=== PATIENT | male | born 1960 | race Caucasian/White ===

== ENCOUNTER 2024-04-27 22:59 | Inpatient (IN) | payer BC, SELFPAY ==
[2024-04-27 23:00] VITALS: BMI 29.0
--- NOTE | 2024-04-27 23:16 | EKG_ITS ---
[facility] Test Date: 2024-04-27 Pat Name: LANEY LEON Department: Room: - Gender: Male Clinical Data Management Director: : 1960 Requested By: Gavin Bangura Order Number: [id number] Reading MD: Gavin Bangura Measurements Intervals [place] Rate: 113 P: 45 RI: 149 QRS: 60 QRSD: 97 T: 32 QT: 326 QTc: 448 Interpretive Statements SINUS TACHYCARDIA ABNORMAL RHYTHM ECG Compared to ECG 08/29/2023 09:48:54 Sinus bradycardia no longer present /store/S0/[id number].pdf
--- NOTE | 2024-04-27 23:16 | XR_ITS ---
Examination: PA lateral chest 2 views Technique: Upright PA lateral chest 2 views Exam date and time: April 27, 2024 1135 hrs. Indications: Right chest pain beginning 2 days ago Findings: Atelectasis versus mild pneumonia right base medially Normal heart size No pulmonary edema The osseous structures are intact Impression: Atelectasis versus early pneumonia right base, clinical correlation advised
--- NOTE | 2024-04-27 23:16 | PD.EDRME ---
Rapid Medical Screening Exam RME Arrival date/time: 04/27/24 22:59 63 year old male present to Ed for n/v, rib/chest pain I have greeted and performed a focused initial assessment of this patient. A comprehensive ED assessment and evaluation of the patient, analysis of all test results, and completion of the medical decision making process will be conducted by additional ED providers. Chief Complaint: General Adult/Misc Complain Time Seen by Provider: 04/27/24 23:02
[2024-04-27 23:20] VITALS: BP 151/94; PULSE 117; RESP 18; TEMP 37; O2SAT 95
[2024-04-27 23:35] LABS: Basophils % (Auto) 0 % (0-2.5); Eosinophils % (Auto) 0 % (0-10); Hematocrit 50.7 % (41.0-53.0); Hemoglobin 16.8 g/dL (13.5-16.0); Immature Granulocytes % (Auto) 1 % (0-0); Immature Granulocytes Auto 0.11 Thou/mm3 (0.00-0.00); Lymphocytes # (Auto) 1.5 Thou/mm3 (1.0-4.8); Lymphocytes % (Auto) 8 % (10-50); Mean Corpuscular HGB Conc 33.1 g/dl (31.0-37.0); Mean Corpuscular Hemoglobin 28.1 pg (25.0-35.0); Mean Corpuscular Volume 85 fL (80-100); Monocytes % (Auto) 10 % (0-12); Neutrophils # (Auto) 16.4 Thou/mm3 (1.8-7.7); Neutrophils % (Auto) 82 % (37-80); Nucleated Red Blood Cell % 0 /100 WBC (0); Platelet Count 224 Thou/mm3 (140-440); RDW Standard Deviation 43.7 fL (35.1-43.9); Red Blood Count 5.98 Miln/mm3 (4.50-5.90)
[2024-04-27 23:59] LABS: Alanine Aminotransferase 31 U/L (10-49); Albumin, Serum 5.1 gm/dL (3.4-4.8); Albumin/Globulin Ratio 1.8 (1.2-2.2); Alkaline Phosphatase 88 U/L (46-116); Anion Gap 12 (7-16); Aspartate Amino Transferase 13 U/L (0-34); BUN/Creatinine Ratio 10 Ratio (12-20); Bilirubin,Total 1.1 mg/dL (0.3-1.2); Blood Urea Nitrogen 12 mg/dL (9-23); Calcium 10.5 mg/dL (8.3-10.6); Calcium (Corrected) 10.5 mg/dL (8.5-10.1); Carbon Dioxide 24.1 mMol/L (20.0-31.0); Chloride 100 mMol/L (98-107); Creatinine (Component) 1.2 mg/dL (0.6-1.3); Estimated Creatinine Clearance 77.3 mL/min (>60); Globulin 2.9 gm/dL (2.3-3.5); Glucose 173 mg/dL (74-106); Lipase 36 U/L (12-53); Osmolality,Calculated 275 (275-295); Sodium 136 mMol/L (136-145); Troponin I < 0.020 ng/mL (0.0-0.045); eGFR > 60 See Note
[2024-04-28] VITALS (16 sets, daily range): BP systolic 127–175; BP diastolic 65–101; PULSE 69–113; RESP 12–20; TEMP 36.4–39.1; O2SAT 94–97; BMI 29.7
--- NOTE | 2024-04-28 00:20 | PC.NURSE ---
RECEIVED PT FROM LEANN GARSIA , PT C/O THAT AFTER VOMITING YESTERDAY HE STARTED HAVING PAIN TO RIGHT RIB AREA .
--- NOTE | 2024-04-28 00:40 | PD.EDADULT ---
ED General RME/HPI General Chief complaint: General Adult/Misc Complain Stated complaint: RT RIB PAIN AFTER VOMITING Time Seen by Provider: 04/27/24 23:02 Arrival date/time: 04/27/24 22:59 RME / HPI RME / HPI narrative: 04/27/24 22:59 63 year old male present to Ed for n/v, rib/chest pain I have greeted and performed a focused initial assessment of this patient. A comprehensive ED assessment and evaluation of the patient, analysis of all test results, and completion of the medical decision making process will be conducted by additional ED providers. ------ Dr. Becerril?s Main ED Evaluation: 63yo male presents to the ED for multiple complaints. Patient states he started having nausea and vomiting yesterday morning. He states he was vomiting so much, he started having right rib and RUQ pain, reporting it now radiates to his back and right shoulder. He has had an intermittent fever and chills. He denies any diarrhea, UTI symptoms or any other associated symptoms. No known allergies. Related Data Home Medications ?Medication ?Instructions ?Recorded ?Confirmed tadalafil 10 mg tablet (Cialis) 10 mg PO QDAY PRN Sexual Activity 11/13/22 04/28/24 ezetimibe 10 mg tablet 10 mg PO HS 04/28/24 04/28/24 Allergies Allergy/AdvReac Type Severity Reaction Status Date / Time No Known Allergies Allergy Verified 01/22/24 11:02 Review of Systems Review of Systems Systems Reviewed: All systems reviewed, normal except as documented Past Medical History Past Medical History NEUROLOGIC: Negative Neurological Disorders or Seizures CARDIAC: Positive Cardiac Disorders and Hypercholesterolemia (no meds); Negative Congestive Heart Failure or Hypertension RESPIRATORY: Negative Chronic Obstructive Pulmonary Disease (COPD), Asthma or Sleep Apnea GASTROINTESTINAL: Positive Gastrointestinal Disorders (H. PYLORI) and Ulcer GENITOURINARY: Negative Genitourinary Disorders or Renal Disease MUSCULOSKELETAL: Negative Musculoskeletal Disorders ENDOCRINE: Negative Endocrine Disorders, Diabetes Mellitus Type 1 or Diabetes Mellitus Type 2 HEMATOLOGIC: Negative Blood Disorders OTHER HISTORY: Negative Blood Transfusions, Anesthesia Reactions or Cancer Family History FAMILY HISTORY: Negative Family Anesthesia Reaction Surgical History SURGICAL: Positive Vasectomy Social History SMOKING STATUS: Never smoker ED Exam Narrative Physical exam: GENERAL APPEARANCE: alert and oriented x 4, well-developed, well-nourished, no acute distress VITALS: All vitals were reviewed and the pulse ox is 96% on room air, which is normal according to my interpretation. HEENT: Normocephalic, atraumatic; pupils equal, round, reactive to light; EOMI; mucous membranes pink, moist; oropharynx clear NECK: Supple LUNGS: CTABL; no wheezes, no rales, no rhonchi HEART: Regular rate, regular rhythm; normal S1, S2; no murmurs ABDOMEN: non distended; normal BS; soft, severe tenderness in all quadrants with guarding, rebound, and rigidity; no masses, no organomegaly, no hernia BACK: no CVA tenderness EXTREMITIES: atraumatic; no edema NEUROLOGIC: awake; alert and oriented x4; cranial nerves II-XII grossly intact; no focal sensory or motor deficits PSYCHIATRIC: appropriate mood and affect SKIN: warm, dry, normal color; no rashes Course Course Course Narrative: CXR is ordered for determining the etiology of fever. 0056: Sepsis alert initiated. Orders made at this time are congruent with ED Adult Sepsis Order List. Re-evaluation is to be completed. 0120: NS IVF started. 0300: Sepsis reassessment performed consisting of lab review, vitals, physical exam including auscultation of heart, lungs, and visual evaluation of capillary refills, mucosal membranes and extremities. 0403: Discussed case with [the resident physician, attending Dr. Rodgers] from Hospitalist service regarding admission. Discussed patients ED course, exam findings, labs, and radiology results. The Hospitalist [agrees] to accept the patient for admission. 0430: The resident hospitalist called back, stating they want Dr. Pastor to admit the patient. 0502: Discussed case with [Dr. Pastor] from [general surgery] regarding [consultation]. Discussed patients ED course, exam findings, labs, and radiology results. States he will admit the patient. Quality Measures Possible source: GI tract/intra-abdominal Blood cultures ordered: yes Antibiotic ordered: Yes Pertinent labs: 04/27/24 04/28/24 23:25 01:08 Lactic Acid 3.9 H mMol/L (0.4-2.0) Procalcitonin 0.17 ng/ml (0.0-0.49) sepsis Orders Category Date Time Status Bedside COVID-19 Antigen Test NOW Care 04/27/24 23:16 Completed Bedside Influenza A&B Antigen Test NOW Care 04/27/24 23:[address] Screening NOW Care 04/28/24 00:55 Completed Property Management Specialist STAT Care 04/28/24 00:54 Active Continuous Pulse Oximetry STAT Care 04/28/24 00:54 Completed EKG (ED ONLY) *Do not use* NOW Care 04/27/24 23:17 Completed Insert IV NOW Care 04/28/24 00:54 Active Miscellaneous Nursing Order NOW Care 04/28/24 02:01 Active NPO STAT Care 04/28/24 00:54 Active Strict Intake and Output Routine Care 04/28/24 00:54 Ordered Consult to General Surgery Stat Cons 04/28/24 03:[address] abd pel w con SEPSIS JUAN C Stat Exams 04/28/24 00:54 Taken EKG (ED Only) Stat Exams 04/27/24 23:16 Draft XR chest 2V Stat Exams 04/27/24 23:16 Completed Arterial Blood Gas Stat Lab 04/28/24 01:12 Completed B-Type Natriuretic Peptide Stat Lab 04/28/24 00:00 Completed Blood Culture (Lab) Stat Lab 04/28/24 01:00 Received CBC Stat Lab 04/27/24 23:25 Completed CMP [Comprehensive Metabolic Panel] Stat Lab 04/27/24 23:25 Completed LDH (Lactate Dehydrogenase) Stat Lab 04/27/24 23:25 Completed Lactate (Lactic Acid) Stat Lab 04/28/24 01:08 Completed Lactic Acid, 3 HR Stat Lab 04/28/24 04:12 Ordered Lipase Stat Lab 04/27/24 23:25 Completed Magnesium Stat Lab 04/27/24 23:25 Completed Partial Thromboplastin Time Stat Lab 04/28/24 00:00 Completed Phosphorous Stat Lab 04/27/24 23:25 Completed Procalcitonin Stat Lab 04/27/24 23:25 Completed Prothrombin Time with INR Stat Lab 04/28/24 00:00 Completed Troponin I Stat Lab 04/27/24 23:25 Completed Urinalysis Stat Lab 04/28/24 03:30 Received Urine Culture Stat Lab 04/28/24 03:30 Received HYDROmorphone INJ [Dilaudid Inj] Med 04/28/24 03:30 Active 1 mg IVP PRN PRN HYDROmorphone INJ [Dilaudid Inj] Med 04/28/24 00:57 Discontinued 1 mg IVP X1 ONE Ondansetron Inj [Zofran Inj] Med 04/28/24 00:57 Discontinued 4 mg IV X1 ONE Piper/Tazo Inj [Zosyn Inj] 4.5 gm Med 04/28/24 00:57 Discontinued Sodium Chloride 0.9% (P) [NS 0.9% mini bag] 100 ml IV NOW Sodium Chloride 0.9% 1000 ml [Ns] 1,000 ml Med 04/28/24 03:30 Discontinued IV 999 mls/hr Sodium Chloride 0.9% 1000 ml [Ns] 2,397 ml Med 04/28/24 00:54 Discontinued IV 2,397 mls/hr Vancomycin Inj 1,000 mg Med 04/28/24 00:57 Discontinued Sodium Chloride 0.9% 250 ml [Ns] 250 ml IV X1 Reevaluation(s) Reevaluation #1: Patient states his pain is improved, but endorses it is starting to return. Pain medication ordered. Time: 03:28 Vital Signs Vital signs: Vital Signs Temperature 98.6 F 04/27/24 23:20 Pulse Rate 117 H 04/27/24 23:20 Respiratory Rate 18 04/27/24 23:20 Blood Pressure 151/94 H 04/27/24 23:20 Pulse Oximetry (%) 95 04/27/24 23:20 Oxygen Delivery Method Room Air 04/27/24 23:20 [facility] Patient data External records reviewed:: [facility] previous records (Per chart review, patient has no relevant previous ED visits or admissions.) Clinical information provided by:: patient Social determinants that could affect healthcare access:: none Patient has the following chronic illnesses:: HLD How is presenting disease/condition affected by chronic disease/condition?: uneffected by Evaluation data The following diagnostics were reviewed and interpreted by me:: lab results and radiology exam(s) Lab and/or radiology exams considered but not ordered:: none Interpretation Summary: WBC count is elevated at 20.0, CMP is normal, Troponin is normal, Lipase is normal, Bedside COVID and Influenza are negative, Lactic Acid is elevated at 3.9, Procalcitonin is normal, according to my interpretation. EKG done at 2330, sinus tachycardia, rate of 113, normal axis, no ectopy, no acute ischemia, according to my interpretation. -------- [facility] Report Signed Patient: LANEY LEON Medxnote. Record#: [id number] Birthdate: 1960 Age/Sex: 63 / M Location: [facility] Attending Dr: Ordering Physician: Gavin Posey PA-C Date of Service: 04/27/24 Procedure(s): XR chest 2V Accession Number(s): [id number] cc: Leanne Samaniego NP; Demetrius Dalton MD; Gavin Posey PA-C~ Examination: PA lateral chest 2 views Technique: Upright PA lateral chest 2 views Exam date and time: April 27, 2024 1135 hrs. Indications: Right chest pain beginning 2 days ago Findings: Atelectasis versus mild pneumonia right base medially Normal heart size No pulmonary edema The osseous structures are intact Impression: Atelectasis versus early pneumonia right base, clinical correlation advised Dictated By: Demetrius Dalton MD Signed By: <Electronically signed by Demetrius Dalton MD in > 04/27/24 2343 --------- [facility] Preliminary Report Draft Patient: LANEY LEON Medxnote. Record#: [id number] Birthdate: 1960 Age/Sex: 63 / M Location: [facility] Attending Dr: Ordering Physician: Date of Service: Procedure(s): Accession Number(s): cc: ~ CT scan of the abdomen and pelvis with intravenous contrast (axial sections with sagittal and coronal reformats) April 28, 2024 0145 hours Clinical History: rigid abdomen No prior study is available for comparison. Findings: There is bibasilar dependent atelectasis. The liver, gallbladder, pancreas, spleen, kidneys and adrenals are unremarkable. No evidence of bowel dilatation. The appendix is thickened, measuring 19 mm in caliber with mural enhancement, moderate periappendiceal fat stranding (axial image 144/332) and adjacent peritoneal thickening. There is an appendicolith, measuring 9 mm. The urinary bladder is unremarkable. There is no free air.Mild ascites is noted. Subcentimeter mesenteric nodes are seen. Mild degenerative changes are identified in the spine. Impression: Acute appendicitis with moderate periappendiceal fat stranding and adjacent peritoneal thickening. No free air or abscess. Mild ascites. Discussion Details: Results Discussed With : Dr. Becerril at 03:10 AM 04/28/2024 Report Electronically Signed By: Bryn Mayen 04/28/2024 3:23:37 AM [EST] Medications Medications considered but not ordered:: none Medication administrations:: Medication Administration History Hydromorphone HCl (Hydromorphone Inj 2 Mg/Ml Vial) 1 mg IVP PRN PRN PRN Reason: PAIN Stop: 04/28/24 15:30 Last Admin: 04/28/24 03:54 Dose: 1 mg Documented By: CVL Discontinued Medications Hydromorphone HCl (Hydromorphone Inj 2 Mg/Ml Vial) 1 mg IVP X1 ONE Stop: 04/28/24 00:58 Last Admin: 04/28/24 01:21 Dose: 1 mg Documented By: CVL Sodium Chloride (Ns) 2,397 mls @ 2,397 mls/hr 30 ml/kg infuse over 60 min (2397 ml) IV .Q1H ONE Stop: 04/28/24 01:53 Last Infusion: 04/28/24 03:38 Dose: Infused Documented By: Admin: 04/28/24 01:20 Dose: 2,397 mls/hr Documented By: CVL Piperacillin Sod/Tazobactam (Sod 4.5 gm/ Sodium Chloride) 100 mls @ 200 mls/hr IV NOW ONE Stop: 04/28/24 01:26 Last Infusion: 04/28/24 01:59 Dose: Infused Documented By: Admin: 04/28/24 01:22 Dose: 200 mls/hr Documented By: CVL Vancomycin HCl 1,000 mg/ (Sodium Chloride) 250 mls @ 150 mls/hr IV X1 ONE Stop: 04/28/24 02:36 Last Infusion: 04/28/24 03:53 Dose: Infused Documented By: Admin: 04/28/24 02:08 Dose: 150 mls/hr Documented By: CVL Sodium Chloride (Ns) 1,000 mls @ 999 mls/hr IV .Q1H1M ONE Stop: 04/28/24 04:30 Last Admin: 04/28/24 03:55 Dose: 999 mls/hr Documented By: CVL Ondansetron HCl (Ondansetron Inj 2 Mg/Ml Inj 2 Ml) 4 mg IV X1 ONE; Protocol Stop: 04/28/24 00:58 Last Admin: 04/28/24 01:19 Dose: 4 mg Documented By: CVL see above Consultations Consultation(s) initiated? (list below): Yes Diagnosis Differential Diagnosis ED Complaint MDM: appendicitis, cholecystitis, SBO, pancreatitis, diverticulitis Most likely diagnosis given after review of the tests above:: see below Admission Indicated Admission indicated?: indicated Explain why admission is indicated or not indicated:: Admission criteria met. Admission Request Was there a request for admission?: Yes Admission Attestation Admission request attestation: Discussed case with [] from Hospitalist service regarding admission. Discussed patients ED course, exam findings, labs, and radiology results. The Hospitalist [agrees,declines] to accept the patient for admission. Disposition Plan Disposition Plan: Admit Medical Decision Making MDM Narrative MDM Narrative: Scribe Attestation: 04/28/24 - Monique Steel am scribing for and in the presence of Dr. Becerril. Differential Diagnosis Differential Diagnosis: appendicitis, cholecystitis, SBO, pancreatitis, diverticulitis Lab Data 04/27/24 23:25 04/27/24 23:25 Labs: Lab Results 04/27/24 04/28/24 04/28/24 Range/Units 23:25 00:00 01:08 WBC 20.0 H (3.8-10.6) Thou/mm3 RBC 5.98 H (4.50-5.90) Miln/mm3 Hgb 16.8 H (13.5-16.0) g/dL Hct 50.7 (41.0-53.0) % MCV 85 (80-100) fL MCH 28.1 (25.0-35.0) pg MCHC 33.1 (31.0-37.0) g/dl RDW Std Deviation 43.7 (35.1-43.9) fL Plt Count 224 (140-440) Thou/mm3 Neut % (Auto) 82 H (37-80) % Lymph % (Auto) 8 L (10-50) % [place] % (Auto) 10 (0-12) % Eos % (Auto) 0 (0-10) % Baso % (Auto) 0 (0-2.5) % Neut # (Auto) 16.4 H (1.8-7.7) Thou/mm3 Lymph # (Auto) 1.5 (1.0-4.8) Thou/mm3 [place] # (Auto) 2.0 H (0.0-0.8) Thou/mm3 Eos # (Auto) 0.0 (0.0-0.5) Thou/mm3 Baso # (Auto) 0.0 (0.0-0.2) Thou/mm3 Immature Gran # (Auto) 0.11 H (0.00-0.00) Thou/mm3 Absolute Nucleated RBC 0.00 (0.00-0.00) Thou/mm3 Immature Gran % 1 H (0-0) % Nucleated RBC % 0 (0) /100 WBC PT 12.5 H (9.0-12.2) Seconds INR 1.2 (0.9-1.3) APTT 27.6 (22.0-36.0) Seconds Puncture Site ABG pH (7.35-7.45) ABG pCO2 (32.0-48.0) mmHg ABG pO2 (83-108) mmHg ABG HCO3 (20-26) mEq/L ABG O2 Saturation (91-98) % ABG Base Excess (-3-3) FiO2 % Sodium 136 (136-145) mMol/L Potassium 4.0 (3.4-5.1) mMol/L Chloride 100 (98-107) mMol/L Carbon Dioxide 24.1 (20.0-31.0) mMol/L Anion Gap 12 (7-16) BUN 12 (9-23) mg/dL Creatinine 1.2 (0.6-1.3) mg/dL Estim Creat Clear Calc 77.3 (>60) mL/min eGFR > 60 (60 - ) See Note BUN/Creatinine Ratio 10 L (12-20) Ratio Glucose 173 H (74-106) mg/dL Calculated Osmolality 275 (275-295) Lactic Acid 3.9 H (0.4-2.0) mMol/L Calcium 10.5 (8.3-10.6) mg/dL Corrected Calcium 10.5 H (8.5-10.1) mg/dL Phosphorus 3.2 (2.4-5.1) mg/dL Magnesium 1.8 (1.6-2.6) mg/dL Total Bilirubin 1.1 (0.3-1.2) mg/dL AST 13 (0-34) U/L ALT 31 (10-49) U/L Alkaline Phosphatase 88 (46-116) U/L Lactate Dehydrogenase 153 (120-246) U/L Troponin I < 0.020 (0.0-0.045) ng/mL B-Natriuretic Peptide < 20 (0-100) pg/mL Total Protein 8.0 (5.7-8.2) gm/dL Albumin 5.1 H (3.4-4.8) gm/dL Globulin 2.9 (2.3-3.5) gm/dL Albumin/Globulin Ratio 1.8 (1.2-2.2) Lipase 36 (12-53) U/L Procalcitonin 0.17 (0.0-0.49) ng/ml 04/28/24 Range/Units 01:12 WBC (3.8-10.6) Thou/mm3 RBC (4.50-5.90) Miln/mm3 Hgb (13.5-16.0) g/dL Hct (41.0-53.0) % MCV (80-100) fL MCH (25.0-35.0) pg MCHC (31.0-37.0) g/dl RDW Std Deviation (35.1-43.9) fL Plt Count (140-440) Thou/mm3 Neut % (Auto) (37-80) % Lymph % (Auto) (10-50) % [place] % (Auto) (0-12) % Eos % (Auto) (0-10) % Baso % (Auto) (0-2.5) % Neut # (Auto) (1.8-7.7) Thou/mm3 Lymph # (Auto) (1.0-4.8) Thou/mm3 [place] # (Auto) (0.0-0.8) Thou/mm3 Eos # (Auto) (0.0-0.5) Thou/mm3 Baso # (Auto) (0.0-0.2) Thou/mm3 Immature Gran # (Auto) (0.00-0.00) Thou/mm3 Absolute Nucleated RBC (0.00-0.00) Thou/mm3 Immature Gran % (0-0) % Nucleated RBC % (0) /100 WBC PT (9.0-12.2) Seconds INR (0.9-1.3) APTT (22.0-36.0) Seconds Puncture Site Right Radial ABG pH 7.46 H (7.35-7.45) ABG pCO2 33 (32.0-48.0) mmHg ABG pO2 70 L (83-108) mmHg ABG HCO3 23 (20-26) mEq/L ABG O2 Saturation 96 (91-98) % ABG Base Excess 0 (-3-3) FiO2 21 % Sodium (136-145) mMol/L Potassium (3.4-5.1) mMol/L Chloride (98-107) mMol/L Carbon Dioxide (20.0-31.0) mMol/L Anion Gap (7-16) BUN (9-23) mg/dL Creatinine (0.6-1.3) mg/dL Estim Creat Clear Calc (>60) mL/min eGFR (60 - ) See Note BUN/Creatinine Ratio (12-20) Ratio Glucose (74-106) mg/dL Calculated Osmolality (275-295) Lactic Acid (0.4-2.0) mMol/L Calcium (8.3-10.6) mg/dL Corrected Calcium (8.5-10.1) mg/dL Phosphorus (2.4-5.1) mg/dL Magnesium (1.6-2.6) mg/dL Total Bilirubin (0.3-1.2) mg/dL AST (0-34) U/L ALT (10-49) U/L Alkaline Phosphatase (46-116) U/L Lactate Dehydrogenase (120-246) U/L Troponin I (0.0-0.045) ng/mL B-Natriuretic Peptide (0-100) pg/mL Total Protein (5.7-8.2) gm/dL Albumin (3.4-4.8) gm/dL Globulin (2.3-3.5) gm/dL Albumin/Globulin Ratio (1.2-2.2) Lipase (12-53) U/L Procalcitonin (0.0-0.49) ng/ml Critical Care Time Critical Care Time Critical Care Time: Yes Total Critical Care Time (min.): 40 Attestation: The high probability of sudden, clinically significant deterioration in the patient?s condition required the highest level of my preparedness to intervene urgently. The services I provided to this patient were to treat and/or prevent clinically significant deterioration. Services included the following: chart data review, reviewing nursing notes and/or old charts, documentation time, sap basis consultant collaboration regarding findings and treatment options, medication orders and management, direct patient care, vital sign assessments and ordering, interpreting and reviewing diagnostic studies and lab tests. Aggregate critical care time includes only time during which I was engaged in work directly related to the patient?s care, as described above, whether at bedside or elsewhere in the Emergency Department. It did not include time spent performing other reported procedures or the services of residents, students, nurses or physician assistants. Discharge Plan Plan Patient Disposition: Admit Acute Care w/in Hospital Prescriptions/Referrals Prescriptions/Med Rec: No Action tadalafil [Cialis] 10 mg tablet 10 mg PO QDAY PRN (Reason: Sexual Activity) Rx Instructions: administer approximately 30min before sexual activity; do not use more than 1 dose per 24hrs ezetimibe 10 mg tablet 10 mg PO HS Referrals: Leanne Samaniego NP [Primary Care Provider] - In 1 week Problem List Clinical Impression: Acute appendicitis, Sepsis, Pneumonia Patient/Caregiver Discharge Instructions Print Language: Icelandic Stand Alone Forms: Beatriz Award Info., Patient Portal Info Letter
--- NOTE | 2024-04-28 00:54 | XR_ITS ---
Examination: CT abdomen with intravenous contrast CT pelvis with intravenous contrast 2-D coronal reconstructions 2-D sagittal reconstructions Date and time of exam:April 28, 2024 0145 hours INDICATIONS: Rigid abdomen without rebound right rib and abdominal pain after vomiting episodes beginning 2 days ago. CTDI: vol (mGy) 24.61 DLP: (mGycm) 1722 Technique: Multiple axial sections of the abdomen and pelvis have been obtained. 64 slice high-resolution scanner used. 3 mm axial sections have been obtained, post intravenous injection 60 cc [id number] 2-D sagittal, coronal reconstructions obtained. Low dose protocols were performed. One or more of the following dose reduction techniques were used; automated exposure control, adjustment of the mA and/or KV according to patient size, use of iterative reconstruction technique. Findings: Bibasilar atelectasis Liver is irregular in contour with fatty infiltration and minimal fluid, 7 mm subcapsular to the liver Spleen is not enlarged Tiny gallstone axial image 108 No pancreatic mass Mild nodular thickening left adrenal gland No hydronephrosis or renal calculi Aorta normal size Retrocecal inflamed fluid-filled enlarged appendix with appendicolith and periappendiceal inflammatory change No pelvic abscess No bowel obstruction Urinary bladder intact Transverse prostate dimension 4.6 cm Fat-containing inguinal hernias IMPRESSION: Acute appendicitis with localized perforation No pelvic abscess
--- NOTE | 2024-04-28 01:10 | PC.NURSE ---
PT CONTINUE TO BE NAUSEATED AND HAVING PAIN, DR. CAMERON AWARE AND IN THE ROOM TO ASSESS PT.
[2024-04-28 01:15] LABS: Lactate (Lactic Acid) 3.9 mMol/L (0.4-2.0)
[2024-04-28 01:15] LABS: Base Excess 0 (-3-3); HCO3 23 mEq/L (20-26); Inspired Oxygen, FIO2 21 %; O2 Saturation 96 % (91-98); PCO2 33 mmHg (32.0-48.0); PO2 70 mmHg (83-108); pH, Arterial 7.46 (7.35-7.45)
[2024-04-28 01:16] LABS: Allen Test Performed/OK; Puncture Site Right Radial
[2024-04-28] MEDS: ONDANSETRON INJ 2 MG/ML INJ 2 ML 4 MG IV (01:19)
[2024-04-28] MEDS: SODIUM CHLORIDE 0.9% 2397 ML IV (01:20)
[2024-04-28] MEDS: HYDROmorphone INJ 2 MG/ML VIAL 1 MG IVP ×3 (01:21→07:58)
[2024-04-28] MEDS: PIPER/TAZO INJ 4.5 GM in SODIUM CHLORIDE 0.9% (P) 100 ML IV (01:22)
[2024-04-28 01:25] LABS: INR 1.2 (0.9-1.3); Partial Thromboplastin Time 27.6 Seconds (22.0-36.0); Prothrombin Time 12.5 Seconds (9.0-12.2)
[2024-04-28 01:26] LABS: B-Type Natriuretic Peptide < 20 pg/mL (0-100)
[2024-04-28 01:29] LABS: LDH (Lactate Dehydrogenase) 153 U/L (120-246); Magnesium 1.8 mg/dL (1.6-2.6); Phosphorous 3.2 mg/dL (2.4-5.1); Procalcitonin 0.17 ng/ml (0.0-0.49)
[2024-04-28] MEDS: Vancomycin Inj 1,000 MG in SODIUM CHLORIDE 0.9% 250 ML 250 ML 150 MG IV (02:08)
--- NOTE | 2024-04-28 03:24 | PRELIM_ITS ---
CT scan of the abdomen and pelvis with intravenous contrast (axial sections with sagittal and coronal reformats) April 28, 2024 0145 hoursClinical History: rigid abdomenNo prior study is available fo r comparison. Findings:There is bibasilar dependent atelectasis.The liver, gallbladder, pancreas, spl een, kidneys and adrenals are unremarkable.No evidence of bowel dilatation. The appendix is thickened , measuring 19 mm in caliber with mural enhancement, moderate periappendiceal fat stranding (axial im age 144/332) and adjacent peritoneal thickening. There is an appendicolith, measuring 9 mm. The urina ry bladder is unremarkable. There is no free air.Mild ascites is noted. Subcentimeter mesenteric node s are seen.Mild degenerative changes are identified in the spine. Impression:Acute appendicitis with moderate periappendiceal fat stranding and adjacent peritoneal thickening. No free air or abscess.Mil d ascites.Discussion Details: Results Discussed With : Dr. Becerril at 03:10 AM 04/28/2024 Report Elect ronically Signed By: Bryn Mayen 04/28/2024 3:23:37 AM [EST]
[2024-04-28] MEDS: SODIUM CHLORIDE 0.9% 1000 ML 1,000 ML 999 ML IV (03:55)
[2024-04-28 04:01] LABS: Collection Type, Urine Clean Catch
[2024-04-28 04:12] LABS: Reflex Lactate? Y
[2024-04-28 04:33] LABS: Bilirubin,Urine Negative (Negative); Blood,Urine Negative (Negative); Clarity,Urine Clear (Clear/Hazy); Color,Urine Yellow (Lt Yel-Yel); Glucose, Urine Trace (Negative); Ketones,Urine Negative (Negative); Leukocyte Esterase,Urine Negative (Negative); Nitrite,Urine Negative (Negative); PH,Urine 6.5 (5.0-7.0); Protein,Urine 1+ (Neg - Trace); RBC,Urine 4 /hpf (0-3); Squamous Epithelial Cell,Urine < 1 /hpf (0-5); Urobilinogen,Urine Negative mg/dL (0.0-1.0); WBC,Urine 2 /hpf (0-5)
[2024-04-28 05:40] LABS: Lactic Acid, 3 HR 2.6 mMol/L (0.4-2.0)
--- NOTE | 2024-04-28 05:45 | PC.NURSE ---
INFORMED PT THAT DR. WILLARD IS COMING TO SEE HIM AND HE IS NPO.
[2024-04-28] MEDS: CEFOXITIN 2 GM in SODIUM CHLORIDE 0.9% (P) 50 ML IV ×4 (07:59→23:15)
[2024-04-28] MEDS: KCL 20 mEq/L in D5-1/2NS 20 MEQ/1,000 ML BAG 100 MEQ IV ×2 (08:09→17:09)
--- NOTE | 2024-04-28 08:22 | PC.CC ---
Pt Mitchell Hui is a 63 yr old male admitted to hospitalist services for acute appendicitis. ASW met with pt at bedside to complete initial assessment. At time of encounter pt is noted to be alert and oriented to person, place and situation. Pt expressed understanding admission orders. Pt able to confirm all demographic information. Pt is from home [id number] where he lives with his Leanne Hui [phone]. Pt identifies his as surrogate DM. Pt is retired. At baseline pt reports being independent with ambulation and completing his ADLs. Pt does not require supplemental O2 in the home. Pt is not diabetic and is not on dialysis. Pt is followed by Leanne Samaniego for primary care. Pt is followed by Dr. Elder for urology. At time of D/c pt will return home with his providing transport. Per pt he has several copies of Advance Directives that he has started but has not completed. At this time pt has declined Advance Directive.
[2024-04-28] MEDS: ACETAMINOPHEN 325 MG TABLET 650 MG PO (08:40)
--- NOTE | 2024-04-28 10:09 | PC.NURSE ---
Daughter called, request that this RN change his point of contact from his to her, this RN spoke w/pt who states he does not want that changed at this time, and would like his to remain his point of contact.
--- NOTE | 2024-04-28 10:28 | PC.NURSE ---
UPDATED THAT PT TAKEN TO SURGERY INSTEAD OF FLOOR, UPDATED THAT THIS RN DID ATTEMPT TO CALL DAUGHTER BACK, HOWEVER, SINCE CALL WAS TRANSFERRED TO THIS RNS PHONE, NO NUMBER CA BE FOUND FOR DAUGHTER.
--- NOTE | 2024-04-28 10:37 | PC.NURSE ---
spoke w/daughter, given update, pt gave verbal she can be updated.
--- NOTE | 2024-04-28 12:10 | ESHP_ITS ---
HPI Date of Admission 04/28/24 07:45 Chief Complaint Chief Complaint: Right lower quadrant abdominal pain with nausea and vomiting HPI 63-year-old male with history of hypercholesterolemia presented to the emergency department with worsening abdominal pain. His pain started 3 days ago in the epigastric and upper abdomen. The pain was initially intermittent. Since yesterday his pain has become persistent and progressively worse. He has had nausea and vomiting with chills but denies fever, diarrhea, constipation or dysuria. He denies having similar symptoms in the past with no recent history of trauma. Review of Systems Constitutional Constitutional: Reports chills and Denies fever(s) Cardiovascular Cardiovascular: Denies chest pain Respiratory Respiratory: Denies cough Gastrointestinal Gastrointestinal: Reports abdominal pain, Reports nausea and Reports vomiting Genitourinary Genitourinary: Denies difficulty urinating Hematologic/Lymphatic Hematologic/Lymphatic: Denies easy bleeding and Denies easy bruising Past Medical History Surgical History OTHER SURGICAL HX: Vasectomy, right shoulder surgery Social History SMOKING STATUS: Never smoker SUBSTANCE USE: does not use ALCOHOL: Current Meds Home Medications and Allergies Home Medications ?Medication ?Instructions ?Recorded ?Confirmed ?Type tadalafil 10 mg tablet (Cialis) 10 mg PO QDAY PRN Sexual Activity 11/13/22 04/28/24 History ezetimibe 10 mg tablet 10 mg PO HS 04/28/24 04/28/24 History Allergies Allergy/AdvReac Type Severity Reaction Status Date / Time No Known Allergies Allergy Verified 04/28/24 12:11 Exam Vital Signs Temp Pulse Resp BP Pulse Ox O2 Del Method O2 Flow Rate 102.4 F H 101 H 18 135/80 H 95 Room Air 2 04/28/24 08:40 04/28/24 08:33 04/28/24 08:33 04/28/24 08:33 04/28/24 08:33 04/28/24 08:33 04/28/24 05:44 Constitutional Constitutional: no acute distress Routine Respiratory Exam Respiratory: Present CTA bilaterally Routine Cardiovascular Exam Cardiovascular: Present tachycardia Routine Abdominal Exam Abdominal: Present soft, normoactive bowel sounds and tenderness (Right mid abdominal tenderness with guarding, no rebound tenderness or peritonitis at this time); Absent distended Results Results: Laboratory Laboratory results: results reviewed Results: Imaging CT scan - abdomen: report reviewed and image reviewed CT scan - pelvis: report reviewed and image reviewed Assessment & Plan Additional Assessment Additional comments: Acute appendicitis Plan Will keep patient n.p.o. with IV fluids and IV antibiotics and plan for laparoscopic possible open appendectomy. Risks include but not limited to infection, bleeding, injury to bowel, bladder, surround neurovascular structure s, abdominal sepsis and or abdominal abscess, need for further procedure and or operation discussed with the patient. Benefits and alternatives explained to him, all his questions answered, he agreed and consented to proceed with the operation. Quality Measures Quality Measures sepsis Current suspected stage: ruled out Possible source: GI tract/intra- abdominal Blood cultures ordered: yes Antibiotic ordered: Yes
--- NOTE | 2024-04-28 12:13 | PD.SUROPNT ---
Date of Procedure 04/28/24 Pre Op Diagnosis Acute appendicitis Post Op Diagnosis Acute gangrenous appendicitis with perforation and localized peritonitis Procedure Laparoscopic appendectomy with abdominal washout Findings Perforated, gangrenous and retrocecal appendix extending cephalad with perforation and localized peritonitis Procedure Description Patient was brought into the operating room in supine position. After administration of general endotracheal anesthesia, abdomen was prepped and draped in standard surgical manner. A Veress needle was inserted through the umbilicus and pneumoperitoneum was obtained up to 15 mmHg. The Veress needle was removed and a 5 mm umbilical incision was made. A 5 mm trocar was placed and laparoscopic camera was inserted. Under direct visualization a laparoscopic camera a 5 mm trocar placed in suprapubic region and a 10 mm trocar placed in left lower quadrant. The abdomen was inspected, the cecum was identified and and noted to be distended. An additional 5 mm epigastric trocar was placed to retract cecum medially and inferiorly. The appendix was identified and noted to be gangrenous, retrocecal with perforation and extending cephalad. A window was created between the appendix and mesoappendix and the appendix was divided near the appendix and cecal junction with blue Endo NATASHA stapling device. The mesoappendix was divided with rico Endo NATASHA stapling device. The appendix was placed inside an Endo Catch and removed from the abdomen utilizing left lower quadrant trocar site. Abdomen and pelvis copiously and thoroughly washed and irrigated, all the fluids were suctioned and the suctioned fluid returned clear. Hemostasis was adequate and satisfactory, staple lines were intact without bleeding or any leakage. Left lower quadrant trocar sites fascial defect was closed with 0 Vicryl using Endo closure device. Instruments and trocars removed, pneumoperitoneum was evacuated and the incisions closed with 4-0 Monocryl subcuticular fashion. Instruments, needles and sponge counts were reported to be correct ??2. Patient tolerated the procedure well, was extubated, breathing spontaneously and without difficulty and was transferred to postanesthesia care in stable condition. Anesthesia GETA and local Pathology / specimen Other (Appendix) Estimated Blood Loss 25 Condition Stable Disposition PACU Surgeon Leslye Pastor MD Surgical Staff Operation Date: 04/28/24 15:15 Case Staff Anesthesiologist: Cooper Marinelli
--- NOTE | 2024-04-28 12:15 | SUR.PHASEI ---
1215 Patient arrived to recovery resting comfortably in [facility], on oxygen 10L via oxy mask, breathing unlabored, vital signs stable, endorsed pain-medicated by anesthesia provider at bedside, dressing intact to lower abdomen; dermabond x4 ports; no bleeding noted, lung sounds clear upon auscultation bilateral radial pulses present when palpated, report received from Dennis GUADALUPE and Dr. Marinelli
--- NOTE | 2024-04-28 12:59 | SUR.PHASEI ---
1255 Report given to Irineo GUADALUPE, patient meets discharge criteria from recovery, awake and alert, breathing unlabored, vital signs stable, denies pain, dressing intact; no bleeding noted, patient eating ice chips; tolerating well, denies nausea 1259 Patient transported via gurney to room 372, patients accompanied transported, Irineo GUADALUPE and [employer] EQUIPMENT INSPECTOR HELPER promptly in patient room, patient able to ambulate from gurney to bed with standby assist, patient resting comfortably in bed with call light in reach when this typewriter operator automatic left patients room
[2024-04-28] MEDS: metroNIDAZOLE/NS 500 MG IVPB 500 MG/100 ML BAG 200 MG IV ×2 (14:13→21:49)
[2024-04-28] MEDS: MORPHINE SULF INJ 10 MG/ML VIAL 3 MG IVP ×3 (14:13→20:31)
--- NOTE | 2024-04-28 14:42 | PD.ANESPROG ---
Documentation for date of: 04/28/24 ANESTHESIA NOTE: Patient had GETA for lap appendectomy earlier today. Pre-op, he was in significant abdominal pain due to his appendix and associated with dyspnea due to abdominal pain. He has had fever and tachycardia pre-op and received oral Acetaminophen earlier along with antibiotics. He was on NC O2 and his O2 sat was 88% on room air. He did well intra-op. Lap showed markedly inflamed appendix/RLQ and peritonitis. I gave him IV Metoprolol to control his tachycardia. He did well in PACU. Cooper Marinelli MD Anesthesia Progress Note Progress Note Most recent Vital Signs: Last Vital Signs Temp 98.4 F 04/28/24 13:25 Pulse 97 04/28/24 13:25 Resp 17 04/28/24 13:25 BP 138/79 H 04/28/24 13:25 Pulse Ox 94 L 04/28/24 13:25 O2 Del Method Nasal Cannula 04/28/24 13:25 O2 Flow Rate 5 04/28/24 13:25
[2024-04-28] MEDS: DOCUSATE SOD 100 MG CAPSULE PO (20:16)
[2024-04-29] VITALS (7 sets, daily range): BP systolic 117–144; BP diastolic 65–80; PULSE 79–90; RESP 16–20; TEMP 36.4–37.1; O2SAT 92–94
[2024-04-29] MEDS: MORPHINE SULF INJ 10 MG/ML VIAL 3 MG IVP ×3 (00:09→07:58)
[2024-04-29] MEDS: metroNIDAZOLE/NS 500 MG IVPB 500 MG/100 ML BAG 200 MG IV ×3 (05:06→22:02)
[2024-04-29] MEDS: CEFOXITIN 2 GM in SODIUM CHLORIDE 0.9% (P) 50 ML IV ×4 (05:06→23:48)
[2024-04-29] MEDS: KCL 20 mEq/L in D5-1/2NS 20 MEQ/1,000 ML BAG 100 MEQ IV (07:58)
[2024-04-29] MEDS: DOCUSATE SOD 100 MG CAPSULE PO ×2 (08:00→20:01)
--- NOTE | 2024-04-29 10:35 | PC.SS ---
SS follow up note; Patient had surgery yesterday.
--- NOTE | 2024-04-29 10:37 | PC.NURSE ---
RN called Dr. Pastor to inform him that pt has not had a BM yet and is having some back pain. MD stated that he will come to bedside to assess pt.
--- NOTE | 2024-04-29 11:27 | ESPR_ITS ---
Documentation for date of: 04/29/24 Subjective Subjective Narrative: Patient is seen and examined. He still has some abdominal distention and right- sided abdominal pain. He denies nausea or vomiting Exam Vital Signs Temp Pulse Resp BP Pulse Ox O2 Del Method O2 Flow Rate 98.1 F 85 20 137/68 H 92 L Nasal Cannula 1 04/29/24 07:37 04/29/24 08:10 04/29/24 08:10 04/29/24 07:37 04/29/24 08:10 04/29/24 07:37 04/29/24 08:10 Constitutional Constitutional: no acute distress Routine Abdominal Exam Abdominal: Present soft Comments: Abdomen is soft and mildly distended. Incisions are clean, dry and intact. He has hypoactive bowel sounds. Assessment & Plan Assessment Additional comments: Postop day #1 status post laparoscopic appendectomy for perforated appendicitis with peritonitis Plan Continue IV antibiotics. Advance to full liquids and Ensure supplements. Patient is advised to increase ambulation and use incentive spirometer. Procedures Procedures Laparoscopic appendectomy with abdominal washout
[2024-04-29] MEDS: LIDOCAINE 5% 1 PATCH TOP (11:44)
[2024-04-29] MEDS: ONDANSETRON INJ 2 MG/ML INJ 2 ML 4 MG IV (13:16)
[2024-04-30] VITALS (7 sets, daily range): BP systolic 128–173; BP diastolic 68–95; PULSE 80–88; RESP 18–20; TEMP 36.2–36.9; O2SAT 90–94
[2024-04-30] MEDS: KCL 20 mEq/L in D5-1/2NS 20 MEQ/1,000 ML BAG 100 MEQ IV (01:21)
[2024-04-30] MEDS: MORPHINE SULF INJ 10 MG/ML VIAL 3 MG IVP (03:38)
[2024-04-30] MEDS: metroNIDAZOLE/NS 500 MG IVPB 500 MG/100 ML BAG 200 MG IV ×3 (05:22→21:21)
[2024-04-30] MEDS: CEFOXITIN 2 GM in SODIUM CHLORIDE 0.9% (P) 50 ML IV ×4 (05:22→23:26)
[2024-04-30 05:48] LABS: Basophils % (Auto) 0 % (0-2.5); Eosinophils % (Auto) 0 % (0-10); Hematocrit 41.4 % (41.0-53.0); Hemoglobin 13.5 g/dL (13.5-16.0); Immature Granulocytes % (Auto) 1 % (0-0); Immature Granulocytes Auto 0.16 Thou/mm3 (0.00-0.00); Lymphocytes # (Auto) 0.7 Thou/mm3 (1.0-4.8); Lymphocytes % (Auto) 5 % (10-50); Mean Corpuscular HGB Conc 32.6 g/dl (31.0-37.0); Mean Corpuscular Hemoglobin 28.3 pg (25.0-35.0); Mean Corpuscular Volume 87 fL (80-100); Monocytes # (Auto) 1.3 Thou/mm3 (0.0-0.8); Monocytes % (Auto) 9 % (0-12); Neutrophils # (Auto) 11.6 Thou/mm3 (1.8-7.7); Neutrophils % (Auto) 84 % (37-80); Nucleated Red Blood Cell % 0 /100 WBC (0); Platelet Count 135 Thou/mm3 (140-440); RDW Standard Deviation 45.4 fL (35.1-43.9); Red Blood Count 4.77 Miln/mm3 (4.50-5.90); White Blood Count 13.8 Thou/mm3 (3.8-10.6)
[2024-04-30 06:03] LABS: Anion Gap 9 (7-16); BUN/Creatinine Ratio 12 Ratio (12-20); Blood Urea Nitrogen 12 mg/dL (9-23); Calcium 8.8 mg/dL (8.3-10.6); Calcium (Corrected) 8.8 mg/dL (8.5-10.1); Carbon Dioxide 23.2 mMol/L (20.0-31.0); Chloride 102 mMol/L (98-107); Estimated Creatinine Clearance 93.7 mL/min (>60); Glucose 145 mg/dL (74-106); Osmolality,Calculated 270 (275-295); Phosphorous 1.1 mg/dL (2.4-5.1); Potassium 4.4 mMol/L (3.4-5.1); Sodium 134 mMol/L (136-145); eGFR > 60 See Note
[2024-04-30] MEDS: DOCUSATE SOD 100 MG CAPSULE PO (09:58)
[2024-04-30] MEDS: LIDOCAINE 5% 1 PATCH TOP (13:14)
--- NOTE | 2024-04-30 14:57 | PC.SS ---
Rounding: Per Dr. Pastor progress note: Continue IV antibiotics. Advance to full liquids and Ensure supplements. Patient is advised to increase ambulation and use incentive spirometer.
[2024-04-30] MEDS: HYDROcodone/APAP 5/325 TABLET 1 TAB PO (17:11)
--- NOTE | 2024-04-30 20:25 | PD.SURPROG ---
Documentation for date of: 04/30/24 Subjective Subjective Narrative: Pt is seen and examined. He is tolerating liquid diet without nausea or vomiting and passing flatus Exam Vital Signs Temp Pulse Resp BP Pulse Ox O2 Del Method O2 Flow Rate 97.1 F 80 19 139/80 H 93 L Room Air 1 04/30/24 20:00 04/30/24 20:00 04/30/24 20:00 04/30/24 20:00 04/30/24 20:00 04/30/24 20:00 04/29/24 08:10 Constitutional Constitutional: no acute distress Routine Abdominal Exam Comments: Abdomen is soft and mildly distended. Incisions are clean, dry and intact Assessment & Plan Assessment Additional comments: POD#2 status post laparoscopic appendectomy for perforated and gangrenous appendicitis with peritonitis Plan Continue IV antibiotics. Correct hypophosphatemia. Advance to full liquids Procedures Procedures Laparoscopic appendectomy with abdominal washout
[2024-04-30] MEDS: SOD PHOS ADDITIVE 30 MMOL in SODIUM CHLORIDE 0.9% 500 ML 500 ML 62.5 MMOL IV (22:12)
[2024-05-01] VITALS (8 sets, daily range): BP systolic 137–150; BP diastolic 73–81; PULSE 76–96; RESP 17–18; TEMP 36.4–37.3; O2SAT 94–96
[2024-05-01] MEDS: CEFOXITIN 2 GM in SODIUM CHLORIDE 0.9% (P) 50 ML IV ×4 (05:03→23:18)
[2024-05-01] MEDS: metroNIDAZOLE/NS 500 MG IVPB 500 MG/100 ML BAG 200 MG IV ×3 (05:40→21:07)
--- NOTE | 2024-05-01 09:59 | PC.SS ---
Follow up note: Pt is on full liquid diet and will advance as tolerated. Pt needs to ambulate. Pt is on IV antibiotic and pain meds. Pt will return home upon dc.
--- NOTE | 2024-05-01 10:45 | PD.SURPROG ---
Documentation for date of: 05/01/24 Subjective Subjective Narrative: Patient is seen and examined. Pain is improving. He is tolerating diet without nausea or vomiting and having bowel movements Exam Vital Signs Temp Pulse Resp BP Pulse Ox O2 Del Method O2 Flow Rate 97.5 F 78 17 137/78 H 95 Room Air 1 05/01/24 08:00 05/01/24 08:00 05/01/24 08:00 05/01/24 08:00 05/01/24 08:00 05/01/24 08:00 04/29/24 08:10 Constitutional Constitutional: no acute distress Routine Abdominal Exam Comments: Abdomen is soft and less distended. Incisions are clean, dry and intact Assessment & Plan Assessment Additional comments: Postop day #3 status post laparoscopic appendectomy Plan Continue IV antibiotics, WBC still elevated. Advance to regular diet Procedures Procedures Laparoscopic appendectomy with abdominal washout
[2024-05-02] VITALS (9 sets, daily range): BP systolic 129–157; BP diastolic 72–78; PULSE 67–84; RESP 16–20; TEMP 36.2–37.1; O2SAT 94–96; BMI 29.8
[2024-05-02] MEDS: CEFOXITIN 2 GM in SODIUM CHLORIDE 0.9% (P) 50 ML IV ×4 (05:02→23:00)
[2024-05-02] MEDS: metroNIDAZOLE/NS 500 MG IVPB 500 MG/100 ML BAG 200 MG IV ×3 (05:37→22:06)
[2024-05-02 05:54] LABS: Basophils # (Auto) 0.1 Thou/mm3 (0.0-0.2); Basophils % (Auto) 1 % (0-2.5); Eosinophils # (Auto) 0.1 Thou/mm3 (0.0-0.5); Eosinophils % (Auto) 1 % (0-10); Hemoglobin 14.1 g/dL (13.5-16.0); Immature Granulocytes % (Auto) 3 % (0-0); Immature Granulocytes Auto 0.41 Thou/mm3 (0.00-0.00); Lymphocytes # (Auto) 1.4 Thou/mm3 (1.0-4.8); Lymphocytes % (Auto) 10 % (10-50); Mean Corpuscular HGB Conc 33.6 g/dl (31.0-37.0); Mean Corpuscular Hemoglobin 28.4 pg (25.0-35.0); Mean Corpuscular Volume 85 fL (80-100); Monocytes # (Auto) 1.9 Thou/mm3 (0.0-0.8); Monocytes % (Auto) 13 % (0-12); Neutrophils # (Auto) 10.8 Thou/mm3 (1.8-7.7); Neutrophils % (Auto) 74 % (37-80); Nucleated Red Blood Cell % 0 /100 WBC (0); Platelet Count 243 Thou/mm3 (140-440); RDW Standard Deviation 44.8 fL (35.1-43.9); Red Blood Count 4.97 Miln/mm3 (4.50-5.90); White Blood Count 14.7 Thou/mm3 (3.8-10.6)
[2024-05-02 06:23] LABS: Albumin, Serum 4.2 gm/dL (3.4-4.8); Anion Gap 11 (7-16); BUN/Creatinine Ratio 17 Ratio (12-20); Blood Urea Nitrogen 15 mg/dL (9-23); Calcium 9.1 mg/dL (8.3-10.6); Calcium (Corrected) 9.1 mg/dL (8.5-10.1); Carbon Dioxide 23.3 mMol/L (20.0-31.0); Chloride 103 mMol/L (98-107); Creatinine (Component) 0.9 mg/dL (0.6-1.3); Estimated Creatinine Clearance 104.1 mL/min (>60); Glucose 115 mg/dL (74-106); Magnesium 2.2 mg/dL (1.6-2.6); Osmolality,Calculated 275 (275-295); Phosphorous 2.7 mg/dL (2.4-5.1); Potassium 3.5 mMol/L (3.4-5.1); Sodium 137 mMol/L (136-145); eGFR > 60 See Note
--- NOTE | 2024-05-02 13:15 | PD.SURPROG ---
Documentation for date of: 05/02/24 Subjective Subjective Narrative: Patient is seen and examined. His pain is improving. He is tolerating regular diet without nausea or vomiting and having bowel movements Exam Vital Signs Temp Pulse Resp BP Pulse Ox O2 Del Method O2 Flow Rate 97.1 F 75 18 152/78 H 95 Room Air 1 05/02/24 11:52 05/02/24 11:52 05/02/24 11:52 05/02/24 11:52 05/02/24 11:52 05/02/24 11:52 04/29/24 08:10 Constitutional Constitutional: no acute distress Routine Abdominal Exam Comments: Abdomen is soft and minimally distended. Incisions are clean, dry and intact. He is tenderness to deep palpation over right mid abdomen, no rebound tenderness or peritonitis at this time Assessment & Plan Assessment Additional comments: Postop day #4 status post laparoscopic appendectomy for perforated gangrenous appendicitis with peritonitis Plan Continue IV antibiotics, WBC went up compared to yesterday. Continue to ambulate Procedures Procedures Laparoscopic appendectomy with abdominal washout
[2024-05-03] VITALS: BP 147/72; PULSE 75; RESP 18; TEMP 36.6; O2SAT 95
[2024-05-03 04:00] VITALS: BP 139/78; PULSE 72; RESP 18; TEMP 36.9; O2SAT 94
[2024-05-03 05:36] LABS: Basophils % (Auto) 0 % (0-2.5); Eosinophils # (Auto) 0.1 Thou/mm3 (0.0-0.5); Eosinophils % (Auto) 1 % (0-10); Hematocrit 40.1 % (41.0-53.0); Hemoglobin 13.1 g/dL (13.5-16.0); Immature Granulocytes % (Auto) 8 % (0-0); Immature Granulocytes Auto 1.06 Thou/mm3 (0.00-0.00); Lymphocytes # (Auto) 1.7 Thou/mm3 (1.0-4.8); Lymphocytes % (Auto) 12 % (10-50); Mean Corpuscular HGB Conc 32.7 g/dl (31.0-37.0); Mean Corpuscular Hemoglobin 27.8 pg (25.0-35.0); Mean Corpuscular Volume 85 fL (80-100); Monocytes # (Auto) 1.6 Thou/mm3 (0.0-0.8); Monocytes % (Auto) 12 % (0-12); Neutrophils # (Auto) 9.4 Thou/mm3 (1.8-7.7); Neutrophils % (Auto) 68 % (37-80); Nucleated Red Blood Cell % 0 /100 WBC (0); Platelet Count 217 Thou/mm3 (140-440); RDW Standard Deviation 45.6 fL (35.1-43.9); Red Blood Count 4.71 Miln/mm3 (4.50-5.90); White Blood Count 13.9 Thou/mm3 (3.8-10.6)
[2024-05-03] MEDS: metroNIDAZOLE/NS 500 MG IVPB 500 MG/100 ML BAG 200 MG IV ×2 (06:02→14:16)
[2024-05-03] MEDS: CEFOXITIN 2 GM in SODIUM CHLORIDE 0.9% (P) 50 ML IV ×2 (06:44→11:45)
[2024-05-03 07:03] VITALS: PULSE 79; RESP 18; O2SAT 94
[2024-05-03 08:00] VITALS: BP 135/76; PULSE 64; RESP 17; TEMP 36.3; O2SAT 98
[2024-05-03 12:00] VITALS: BP 135/69; PULSE 68; RESP 19; TEMP 36.2; O2SAT 94
--- NOTE | 2024-05-03 13:49 | PD.SURDS ---
Planned Discharge Date 05/03/24 DS: Providers Provider Date of admission: 04/28/24 12:16 Primary care physician: Leanne Samaniego NP Admitting Provider: Leslye Pastor MD Attending Provider on Admission: Leslye Pastor MD Consults: 04/28/24 03:57 Consult to General Surgery Stat Comment: Consulting Provider: Leslye Pastor Attending Provider on DC: Leslye Pastor MD Discharging Provider: Leslye Pastor MD Diagnosis Discharge Diagnosis (1) Acute appendicitis with perforation, localized peritonitis, and gangrene, without abscess: Status: Acute Problem List Completed Was Problem List Reviewed/Reconciled?: Yes Hospital Course Brief History: 63-year-old male with history of hypercholesterolemia presented to the emergency department with worsening abdominal pain. His pain started 3 days ago in the epigastric and upper abdomen. The pain was initially intermittent. Since yesterday his pain has become persistent and progressively worse. He has had nausea and vomiting with chills but denies fever, diarrhea, constipation or dysuria. He denies having similar symptoms in the past with no recent history of trauma. Patient underwent laparoscopic appendectomy that revealed perforated and gangrenous appendix with localized peritonitis (for further details please refer to the operative report). Postoperatively patient was started on clear liquids and his diet was gradually advanced. He did not have any nausea or vomiting. He started passing flatus and had multiple bowel movements. He has been ambulating and voiding without difficulty. He was noted to have hypophosphatemia that was corrected during postoperative period. He received IV antibiotics throughout hospitalization and remained afebrile. His WBC is trending downwards. His incisions are clean, dry and intact. He is being discharged home in stable condition. Status at Discharge Functional status at discharge: independent ambulation Overall status at discharge: patient is progressing back to baseline Exam Vital Signs Temp Pulse Resp BP Pulse Ox O2 Del Method O2 Flow Rate 97.1 F 68 19 135/69 H 94 L Room Air 1 05/03/24 12:05/03/24 12:05/03/24 12:05/03/24 12:00 05/03/24 12:00 05/03/24 12:00 04/29/24 08:10 Constitutional Constitutional: no acute distress Routine Abdominal Exam Abdominal: Present soft, normoactive bowel sounds and tenderness ([place]ikkie-incisional tenderness. Incisions are clean, dry and intact); Absent distended Discharge Plan Plan Patient Disposition: HOME (Self Care) Prescriptions/Referrals Prescriptions/Med Rec: New ciprofloxacin HCl [Cipro] 500 mg tablet 500 mg PO BID Qty: 14 0RF Continued tadalafil [Cialis] 10 mg tablet 10 mg PO QDAY PRN (Reason: Sexual Activity) Rx Instructions: administer approximately 30min before sexual activity; do not use more than 1 dose per 24hrs ezetimibe 10 mg tablet 10 mg PO HS Referrals: Leanne Samaniego NP [Primary Care Provider] - Patient/Caregiver Discharge Instructions Discharge Activity: activity as tolerated Education Materials: Preventing Surgical Site Infections Print Language: German Activity Restrictions/Additional Instructions: May shower. Avoid lifting, straining, pulling or pushing for 4 weeks. May take over the counter laxatives if no bowel movement in 2 days. Follow up with Dr. Pastor in 2 weeks, call [phone] for an appointment. May have diet as tolerated. May take Tylenol for pain Stand Alone Forms: [employer] Award Info., Patient Portal Info Letter Discharge Order Discharge Orders: Discharge (Routine); Ordered 05/03/24 Ordered By: Leslye Pastor Procedures Procedure Date 04/28/24 Procedures Laparoscopic appendectomy with abdominal washout
== END 2024-05-03 15:15 | disposition home or self-care (01) | DRG 399 ==
LOC: SERX 04-28 04:08 → SERHOLD 04-28 07:57 → S3SX 04-28 13:05
PROVIDERS: Physician Assistant; Admitting Provider Surgery; Emergency Provider Emergency Medicine; PCP Nurse Practitioner Family; Visit Provider Surgery
PROC: 0DTJ4ZZ Resection of Appendix, Percutaneous Endoscopic Approach (ICD-10-PCS; CPT 44970; principal; 2024-04-28 15:00)
DX: K35.31 Acute appendicitis with localized peritonitis and gangrene, without perforation (principal); E78.00 Pure hypercholesterolemia, unspecified; E83.39 Other disorders of phosphorus metabolism; Z79.899 Other long term (current) drug therapy
CPT/HCPCS: 36415; 36600; 71046; 74177; 80053; 80069; 81001; 82803; 83605; 83615; 83690; 83735; 83880; 84100; 84145; 84484; 85025; 85610; 85730; 87040; 87086; 87400; 87811; 93005; 96361; 96365; 96366; 96367; 96375; 96376; 99291; A4217; A4649; J0694; J1100; J2250; J2270; J2405; J2543; J2704; J2710; J3010; J3371; J3480; J3490; J7030; J7040; J7050; Q9967; A9270; J1596; J1805; J1836; J3370

== ENCOUNTER 2024-05-06 19:22 | Inpatient (IN) | payer MEDICARE, SELFPAY ==
[2024-05-06 19:23] VITALS: BMI 27.7
[2024-05-06 19:52] VITALS: BP 156/76; PULSE 89; RESP 18; TEMP 37.3; O2SAT 98
--- NOTE | 2024-05-06 20:03 | EKG_ITS ---
[facility] Test Date: 2024-05-06 Pat Name: LANEY LEON Department: Room: - Gender: Male Book Critic: : 1960 Requested By: Kris Avalos ([facility]) Order Number: [id number] Reading MD: Kris Avalos ([facility]) Measurements Intervals [place] Rate: 83 P: 65 UT: 160 QRS: 78 QRSD: 90 T: 48 QT: 365 QTc: 431 Interpretive Statements SINUS RHYTHM Compared to ECG 04/27/2024 23:30:25 Sinus tachycardia no longer present /store/S0/[id number].pdf
--- NOTE | 2024-05-06 20:03 | PD.EDRME ---
Rapid Medical Screening Exam RME Arrival date/time: 05/06/24 19:22 63-year-old male recently admitted for ruptured appendix and discharge presents emergency department complaining of shortness of breath and was told to go to the ER for evaluation by her primary care provider due to elevated white count and chest x-ray that was done today. Chief Complaint: Shortness of Breath/Dyspnea Time Seen by Provider: 05/06/24 19:52 Vital signs: Vital Signs Temperature 99.2 F 05/06/24 19:52 Pulse Rate 89 05/06/24 19:52 Respiratory Rate 18 05/06/24 19:52 Blood Pressure 156/76 H 05/06/24 19:52 Pulse Oximetry (%) 98 05/06/24 19:52 Oxygen Delivery Method Room Air 05/06/24 19:52 Vital signs reviewed by provider: Yes
[2024-05-06 21:22] LABS: Lactate (Lactic Acid) 2.2 mMol/L (0.4-2.0)
[2024-05-06 21:50] LABS: Procalcitonin 0.18 ng/ml (0.0-0.49)
--- NOTE | 2024-05-06 22:20 | EDNOTE_ITS ---
ED SOB =RME/HPI General Chief Complaint: Shortness of Breath/Dyspnea Stated Complaint: SOB-Ruptured Appy Sx on 04/28, D/C Sunday Time Seen by Provider: 05/06/24 19:52 Source: patient Arrival date/time: 05/06/24 19:22 63-year-old male with past medical history of hypercholesteremia and recently admitted for ruptured appendix 04/28/24 and discharged home presents emergency department complaining of shortness of breath and was told to go to the ER for evaluation by her primary care provider due to elevated white count and chest x- ray showing pneumonia. Mode of arrival: ambulatory Limitations: no limitations RME / HPI RME / HPI Narrative: 05/06/24 19:22 63-year-old male recently admitted for ruptured appendix and discharge presents emergency department complaining of shortness of breath and was told to go to the ER for evaluation by her primary care provider due to elevated white count and chest x-ray that was done today. MD Complaint: shortness of breath Context: recent illness Severity: moderate Consistency/Duration: constant Relieving factors: rest and upright position Exacerbating factors: exertion Associated symptoms: denies other symptoms Treatment prior to arrival: none Related Data Home oxygen amount: none Home Medications ?Medication ?Instructions ?Recorded ?Confirmed tadalafil 10 mg tablet (Cialis) 10 mg PO QDAY PRN Sexual Activity 11/13/22 04/28/24 ezetimibe 10 mg tablet 10 mg PO HS 04/28/24 04/28/24 Previous Rx's ?Medication ?Instructions ?Recorded ciprofloxacin HCl 500 mg tablet 500 mg PO BID #14 tabs 05/03/24 (Cipro) Allergies Allergy/AdvReac Type Severity Reaction Status Date / Time No Known Allergies Allergy Verified 04/28/24 12:11 Review of Systems Review of Systems Systems Reviewed: All systems reviewed, normal except as documented Constitutional Constitutional: Reports system reviewed and no additional complaints, except as documented, Denies body ache(s), Denies chills and Denies fever(s) Eyes Eyes: Reports system reviewed and no additional complaints, except as documented and Denies change in vision ENT Ears, Nose, Mouth, and Throat: Reports system reviewed and no additional complaints, except as documented, Denies disequilibrium, Denies dizziness, Denies sore throat and Denies vertigo Cardiovascular Cardiovascular: Reports system reviewed and no additional complaints, except as documented, Denies chest pain and Reports dyspnea Respiratory Respiratory: Reports system reviewed and no additional complaints, except as documented, Denies chest congestion, Denies cough and Reports dyspnea Gastrointestinal Gastrointestinal: Reports system reviewed and no additional complaints, except as documented, Denies abdominal pain, Denies nausea and Denies vomiting Musculoskeletal Musculoskeletal: Reports system reviewed and no additional complaints, except as documented, Denies abnormal gait and Denies arthralgias Integumentary/Breasts Skin/Breast: Reports system reviewed and no additional complaints, except as documented, Denies erythema, Denies rash and Denies wounds Neurologic Neurologic: Reports system reviewed and no additional complaints, except as documented, Denies abnormal gait, Denies disequilibrium, Denies dizziness and Denies vertigo Past Medical History Past Medical History NEUROLOGIC: Negative Neurological Disorders or Seizures CARDIAC: Positive Cardiac Disorders and Hypercholesterolemia; Negative Congestive Heart Failure or Hypertension RESPIRATORY: Negative Chronic Obstructive Pulmonary Disease (COPD), Asthma or Sleep Apnea GASTROINTESTINAL: Positive Gastrointestinal Disorders and Ulcer GENITOURINARY: Negative Genitourinary Disorders or Renal Disease MUSCULOSKELETAL: Negative Musculoskeletal Disorders ENDOCRINE: Negative Endocrine Disorders, Diabetes Mellitus Type 1 or Diabetes Mellitus Type 2 HEMATOLOGIC: Negative Blood Disorders or Sickle Cell Disease OTHER HISTORY: Negative Blood Transfusions, Blood Transfusion Reaction, Anesthesia Reactions or Cancer Family History FAMILY HISTORY: Negative Family Anesthesia Reaction Surgical History SURGICAL: Positive Vasectomy Social History SMOKING STATUS: Never smoker SUBSTANCE USE: does not use ED Exam General Limitations: Present no limitations General appearance: Present alert and in no apparent distress Head Head exam: Present atraumatic Eye Eye exam: Present normal appearance, PERRL and EOMI ENT ENT exam: Present normal exam, normal oropharynx and mucous membranes moist Neck Neck exam: Present normal inspection, full ROM and trachea midline Chest Chest inspection: Present normal inspection and symmetric chest wall rise Respiratory Respiratory exam: Present normal lung sounds bilaterally Expanded Respiratory Exam Location: Right: decreased breath sounds and Lower: decreased breath sounds Cardiovascular Cardiovascular exam: Present regular rate, normal rhythm and normal heart sounds Abdominal Exam Abdominal exam: Present soft and normal bowel sounds; Absent tenderness or rebound Extremities Exam Extremities exam: Present normal inspection and full ROM Back Exam Back exam: Present normal inspection and full ROM Neurological Exam Neurological exam: Present alert, oriented X3 and CN II-XII intact Psychiatric Psychiatric exam: Present normal affect and normal mood Skin Skin exam: Present warm, dry, intact and normal color Expanded Skin Exam Type of lesion: Present other (Lap sites from recent ruptured appendix) Course Quality Measures Possible source: pulmonary Blood cultures ordered: yes Antibiotic ordered: Yes Pertinent labs: 05/06/24 05/06/24 20:56 21:01 Lactic Acid 2.2 H mMol/L (0.4-2.0) Procalcitonin 0.18 ng/ml (0.0-0.49) sepsis Orders Category Date Time Status COVID-19 Screening Questionnaire NOW Care 05/06/24 22:11 Active Administrative Support Assistant STAT Care 05/06/24 21:40 Active Continuous Pulse Oximetry STAT Care 05/06/24 21:40 Completed Decision to Admit X1 Care 05/06/24 22:11 Active EKG (ED ONLY) *Do not use* NOW Care 05/06/24 20:03 Completed Insert IV NOW Care 05/06/24 21:32 Active NPO STAT Care 05/06/24 21:40 Active Strict Intake and Output Routine Care 05/06/24 21:40 Ordered EKG (ED Only) Stat Exams 05/06/24 20:03 Draft Blood Culture (Lab) Stat Lab 05/06/24 20:56 Received Lactic Acid [Lactate (Lactic Acid)] Stat Lab 05/06/24 21:01 Completed Lactic Acid [Lactate (Lactic Acid)] Stat Lab 05/07/24 00:10 Ordered Lactic Acid, 3 HR Stat Lab 05/07/24 00:18 Ordered Procalcitonin Stat Lab 05/06/24 20:56 Completed Urinalysis Stat Lab 05/06/24 23:08 Completed Azithromycin Inj [Zithromax Inj] 500 mg Med 05/06/24 21:42 Discontinued Sodium Chloride 0.9% 250 ml [Ns] 250 ml IV X1 Sodium Chloride 0.9% 1000 ml [Ns] 2,397 ml Med 05/06/24 21:40 Discontinued IV 2,397 mls/hr cefTRIAXone [Rocephin] 1,000 mg Med 05/06/24 21:33 Discontinued Sodium Chloride 0.9% (P) [Ns 0.9% (P)] 50 ml IV X1 Vital Signs Vital signs: Vital Signs Temperature 99.2 F 05/06/24 19:52 Pulse Rate 89 05/06/24 19:52 Respiratory Rate 18 05/06/24 19:52 Blood Pressure 156/76 H 05/06/24 19:52 Pulse Oximetry (%) 98 05/06/24 19:52 Oxygen Delivery Method Room Air 05/06/24 19:52 98% room air within normal limits Procedures -ED EKG Interpretation #1: Date of EK05/06/24 Time of EK:07 Rate: 83 Interpretation: Interpreted by me EKG Impression: Normal sinus rhythm, No acute ST-T changes, No ectopy, No ischemic changes and Normal QRS Shortness of Breath / Dyspnea MDM Narrative MDM Narrative:: 63-year-old male with past medical history of hypercholesteremia and recently admitted for ruptured appendix 04/28/24 and discharged home presents emergency department complaining of shortness of breath and was told to go to the ER for evaluation by her primary care provider due to elevated white count and chest x- ray showing pneumonia. CBC remarkable for leukocytosis 17.1. Chemistry panel unremarkable other than elevated lactic 2.2. Patient given IV Rocephin and azithromycin along with 30 mL/kg NS bolus. Chest x-ray findings right base pneumonia with moderate to large right pleural effusion. Dr. Barron and Resident Dr. Yun consulted for admission. Dr. Yun agrees to admit patient. Patient stable at time of admission. Patient data External records reviewed:: [facility] previous records Clinical information provided by:: patient Social determinants that could affect healthcare access:: none Patient has the following chronic illnesses:: See chart How is presenting disease/condition affected by chronic disease/condition?: u neffected by Evaluation data The following diagnostics were reviewed and interpreted by me:: lab results and EKG tracing(s) Lab and/or radiology exams considered but not ordered:: Ordered Interpretation Summary: Interpreted by me Medications / Prescriptions Medications or Prescriptions considered but not ordered:: Ordered Medication administrations:: Medication Administration History Discontinued Medications Ceftriaxone Sodium 1,000 mg/ (Sodium Chloride) 50 mls @ 100 mls/hr IV X1 ONE Stop: 05/06/24 22:02 Last Admin: 05/06/24 23:05 Dose: 100 mls/hr Documented By: ANNE MARIE Sodium Chloride (Ns) 2,397 mls @ 2,397 mls/hr 30 ml/kg infuse over 60 min (2397 ml) IV .Q1H ONE Stop: 05/06/24 22:39 Last Admin: 05/06/24 23:27 Dose: 2,397 mls/hr Documented By: ANNE MARIE Azithromycin 500 mg/ Sodium (Chloride) 250 mls @ 250 mls/hr IV X1 ONE Stop: 05/06/24 22:41 Last Admin: 05/06/24 23:05 Dose: 250 mls/hr Documented By: ANNE MARIE Given Consultations Consultation(s) initiated? (list below): Yes Consultation #1 (Physician, Specialty, Details): Dr. Godwin Diagnosis Shortness of Breath Differential Diagnosis: acute exacerbation of chronic obstructive airways disease, congestive heart failure, community acquired pneumonia, asthma with exacerbation and pulmonary embolism Most likely diagnosis given after review of the tests above:: Community-acquired pneumonia Sepsis Pleural effusion Admission Indicated Admission indicated?: indicated Admission Request Was there a request for admission?: Yes Admission Attestation Admission request attestation: Discussed case with [Dr. Yun] from Hospitalist service regarding admission. Discussed patients ED course, exam findings, labs, and radiology results. The Hospitalist [agrees,] to accept the patient for admission. Disposition Plan Disposition Plan: Admit Discharge Plan Plan Patient Disposition: Admit Acute Care w/in Hospital Disposition Comment: Stable Prescriptions/Referrals Prescriptions/Med Rec: No Action tadalafil [Cialis] 10 mg tablet 10 mg PO QDAY PRN (Reason: Sexual Activity) Rx Instructions: administer approximately 30min before sexual activity; do not use more than 1 dose per 24hrs ezetimibe 10 mg tablet 10 mg PO HS ciprofloxacin HCl [Cipro] 500 mg tablet 500 mg PO BID Qty: 14 0RF Referrals: Leanne Samaniego [employer] [Primary Care Provider] - In 1 week Problem List Clinical Impression: Pneumonia, Sepsis, Pleural effusion Patient/Caregiver Discharge Instructions Print Language: Occitan Stand Alone Forms: Beatriz Award Info., Patient Portal Info Letter PA/MARKETING SALES REPRESENTATIVE Supervising Physician PA/MARKETING SALES REPRESENTATIVE Supervising Physician: Dr. Becerril
[2024-05-06 22:21] VITALS: BP 122/74; O2SAT 97
[2024-05-06] MEDS: cefTRIAXone 1,000 MG in SODIUM CHLORIDE 0.9% (P) 50 ML 100 MG IV (23:05)
[2024-05-06] MEDS: AZITHROMYCIN INJ 500 MG in SODIUM CHLORIDE 0.9% 250 ML 250 ML 250 MG IV (23:05)
--- NOTE | 2024-05-06 23:14 | PD.RESCONSUL ---
HPI Data of Consult Primary Care Provider: Leanne Samaniego NP Consult Narrative cc:: cc: Exam Vital Signs Temp Pulse Resp BP Pulse Ox O2 Del Method 99.2 F 89 18 156/76 H 98 Room Air 05/06/24 19:52 05/06/24 19:52 05/06/24 19:52 05/06/24 19:52 05/06/24 19:52 05/06/24 19:52 Narrative Exam Physical Exam General: Awake and in no acute distress. Conversational and non-toxic appearing. HEENT: Normocephalic, atraumatic, mucous membranes moist. Heart: Regular rate and rhythm, no murmurs. Lungs: Clear to auscultation with no wheezing or crackles. Abdomen: Soft, nondistended, nontender, positive bowel sounds. ?No guarding or rebound tenderness. Neurologic: Alert and oriented x3, no gross neurological deficit, and patient able to move all 4 extremities. Extremities: No edema. Skin: No rash or ecchymoses. Quality Measures Quality Measures sepsis Medications Home Medications and Allergies Home Medications ?Medication ?Instructions ?Recorded ?Confirmed ?Type tadalafil 10 mg tablet (Cialis) 10 mg PO QDAY PRN Sexual Activity 11/13/22 04/28/24 History ezetimibe 10 mg tablet 10 mg PO HS 04/28/24 04/28/24 History Allergies Allergy/AdvReac Type Severity Reaction Status Date / Time No Known Allergies Allergy Verified 04/28/24 12:11 Visit Medications Discontinued Medications Ceftriaxone Sodium 1,000 mg/ (Sodium Chloride) 50 mls @ 100 mls/hr IV X1 ONE Stop: 05/06/24 22:02 Sodium Chloride (Ns) 2,397 mls @ 2,397 mls/hr 30 ml/kg infuse over 60 min (2397 ml) IV .Q1H ONE Stop: 05/06/24 22:39 Azithromycin 500 mg/ Sodium (Chloride) 250 mls @ 250 mls/hr IV X1 ONE Stop: 05/06/24 22:41 Assessment & Plan Plan Patient plan of care was discussed with the attending physician, Dr. Barron. Montse Yun, PGY-2
[2024-05-06 23:17] LABS: Collection Type, Urine Clean Catch
[2024-05-06] MEDS: SODIUM CHLORIDE 0.9% 2397 ML IV (23:27)
[2024-05-06 23:28] LABS: Bilirubin,Urine Negative (Negative); Blood,Urine Negative (Negative); Clarity,Urine Clear (Clear/Hazy); Color,Urine Yellow (Lt Yel-Yel); Glucose, Urine Negative (Negative); Ketones,Urine Negative (Negative); Leukocyte Esterase,Urine Negative (Negative); Nitrite,Urine Negative (Negative); Protein,Urine Trace (Neg - Trace); RBC,Urine 1 /hpf (0-3); Specific Gravity,Urine 1.028 (1.001-1.035); Squamous Epithelial Cell,Urine < 1 /hpf (0-5); Urobilinogen,Urine Negative mg/dL (0.0-1.0); WBC,Urine 1 /hpf (0-5)
[2024-05-07] VITALS (10 sets, daily range): BP systolic 117–135; BP diastolic 69–79; PULSE 65–81; RESP 16–97; TEMP 36.1–36.9; O2SAT 96–100
[2024-05-07 00:18] LABS: Reflex Lactate? Y
[2024-05-07 01:03] LABS: Lactate (Lactic Acid) 0.9 mMol/L (0.4-2.0)
--- NOTE | 2024-05-07 01:04 | PD.RESHP ---
Documentation for date of: 05/07/24 [facility] History of Present Illness Chief complaint: Shortness of breath, elevated WBC and CXR, sent by PCP History of present illness: Patient is a 63-year-old male with past medical history of hyperlipidemia who presented to the ED on 05/06/2024 sent from PCP clinic due to elevated WBC on outpatient labs and CXR showing pneumonia. Patient was recently admitted at [facility] by Dr. Pastor on 04/28 for acute gangrenous appendicitis with perforation and localized peritonitis and underwent laparoscopic appendectomy. Patient was discharged on 05/03/2023 on a 7-day course of ciprofloxacin, patient states he has been taking it and had 3 days left. Patient currently complains of shortness of breath and occasional cough, worse upon inspiration, and associated chest discomfort, which developed gradually over the last 3 days. Relieved by rest and upright position. He otherwise denies any fever, chills, diaphoresis, nausea, vomiting, or dysuria since hospital discharge. He notes some positional abdominal soreness due to the surgical sites. He is passing gas and having normal bowel movements. ED Course: -Initial vitals were BP 156/76, HR 89, RR 18, Temp 99.2, O2 98% on room air -Labs significant for WBC 17.1, lactic acid 2.2 -CXR is showing a right-sided pleural effusion -In the ED, patient was given 1 g IV ceftriaxone, 500 mg IV azithromycin, and 2.3L NS -Patient was admitted for further management of right pleural effusion Review of Systems Review of systems otherwise negative except what is mentioned above. Past Medical History Past Medical History Comments [facility] COMMENT: Past Medical History: Hyperlipidemia Surgical History: Laparoscopic appendectomy 04/28/2024, vasectomy, right shoulder surgery Social History: Denies history of smoking, occasional alcohol use, denies recreational drug use Current Medications: ezetimibe 10 mg HS, tadalafil 10 mg prn, ciprofloxacin 500 mg BID 3 days remaining Allergies: No known drug allergies Exam Vital Signs Temp Pulse Resp BP Pulse Ox O2 Del Method 98.4 F 80 17 135/76 H 96 Room Air 05/07/24 00:54 05/07/24 00:54 05/07/24 00:54 05/07/24 00:54 05/07/24 00:54 05/07/24 00:54 Narrative Exam Physical Exam General: Awake and in no acute distress. Conversational and non-toxic appearing. HEENT: Normocephalic, atraumatic, mucous membranes moist. Heart: Regular rate and rhythm, no murmurs. Lungs: Clear to auscultation with no wheezing or crackles. Reduced breath sounds right lower lung base. Abdomen: No peritoneal signs. Soft, nondistended, mild tenderness appropriate for surgical wounds, positive bowel sounds. ?No guarding or rebound tenderness. Lap sites are clean, dry, with appropriate healing and without erythema, pus, or dehiscience. Neurologic: Alert and oriented x3, no gross neurological deficit, and patient able to move all 4 extremities. Extremities: No edema. Skin: No rash or ecchymoses. Results: Labs 05/07/24 04:50 05/07/24 04:50 Labs: Urine 05/06/24 Range/Units 23:08 Urine Color Yellow (Lt Yel-Yel) Urine Clarity Clear (Clear/Hazy) Urine pH 6.0 (5.0-7.0) Ur Specific [place] 1.028 (1.001-1.035) Urine Protein Trace (Neg - Trace) Urine Glucose (UA) Negative (Negative) Quality Measures Quality Measures sepsis Current suspected stage: sepsis (Not meeting SIRS criteria) Possible source: pulmonary Blood cultures ordered: yes Antibiotic ordered: Yes Medications Home Medications and Allergies Home Medications ?Medication ?Instructions ?Recorded ?Confirmed ?Type tadalafil 10 mg tablet (Cialis) 10 mg PO QDAY PRN Sexual Activity 11/13/22 05/07/24 History ezetimibe 10 mg tablet 10 mg PO HS 04/28/24 05/07/24 History Allergies Allergy/AdvReac Type Severity Reaction Status Date / Time No Known Allergies Allergy Verified 04/28/24 12:11 Visit Medications Acetaminophen (Acetaminophen 325 Mg Tablet) 650 mg PO Q6H PRN PRN Reason: Fever >100.4 or Pain 1-10 Stop: 06/06/24 00:35 Hydrocodone Bitart/Acetaminophen (Hydrocodone/Apap 5/325 Tablet) 1 tab PO Q6HR PRN PRN Reason: PAIN SCALE 7-10 (Severe Stop: 05/12/24 00:47 Enoxaparin Sodium (Enoxaparin Sod Inj 40 Mg/0.4 Ml Syringe) 40 mg SC QDAY CATHY Stop: 05/21/24 08:59 Ceftriaxone Sodium/Dextrose (Rocephin/D5w 1gm Iv Premix) 50 mls @ 100 mls/hr IV DAILY@2100 CATHY Stop: 05/14/24 20:59 Azithromycin 500 mg/ Sodium (Chloride) 250 mls @ 250 mls/hr IV DAILY@2100 CATHY Stop: 05/14/24 20:59 Ondansetron HCl (Ondansetron Inj 2 Mg/Ml Inj 2 Ml) 4 mg IV Q6H PRN; Protocol PRN Reason: NAUSEA OR VOMITING Stop: 06/06/24 00:35 Discontinued Medications Ceftriaxone Sodium 1,000 mg/ (Sodium Chloride) 50 mls @ 100 mls/hr IV X1 ONE Stop: 05/06/24 22:02 Last Admin: 05/06/24 23:05 Dose: 100 mls/hr Sodium Chloride (Ns) 2,397 mls @ 2,397 mls/hr 30 ml/kg infuse over 60 min (2397 ml) IV .Q1H ONE Stop: 05/06/24 22:39 Last Admin: 05/06/24 23:27 Dose: 2,397 mls/hr Azithromycin 500 mg/ Sodium (Chloride) 250 mls @ 250 mls/hr IV X1 ONE Stop: 05/06/24 22:41 Last Admin: 05/06/24 23:05 Dose: 250 mls/hr Sodium Chloride (Sodium Chloride Rt 10% 15 Ml Nebu) 5 ml INH X1 ONE Stop: 05/07/24 00:59 Assessment & Plan Plan 63-year-old male with past medical history of hyperlipidemia who presented to the ED on 05/06/2024 sent from PCP clinic due to elevated WBC on outpatient labs and CXR showing pneumonia. He had been hospitalized from 04/28-05/03 for ruptured appendix s/p appendectomy. Patient was admitted for further management of pneumonia and right-sided pleural effusion. #Right-sided pleural effusion #Right lung atelectesis #Community acquired pneumonia versus hospital acquired pneumonia #Leukocytosis #Recent ruptured appendicitis s/p appendectomy Patient presented from clinic, CXR showing R pleural effusion and mild right base infiltrate possibly suggestive of atelectesis versus pneumonia. Patient had a ruptured appendix s/p laparoscopic appendectomy by Dr. Pastor 04/28. Patient not meeting SIRS criteria, had isolated WBC 17.1 which uptrended from 13.9 on discharge 05/03. Procal is negative, lactic acid 2.2 downtrended to normal 0.9 after receiving fluids in ED. Etiology of the right pleural effusion is most likely secondary to inflammation following a more complicated laparoscopic surgery, which involved perforated gangrenous appendix and localized peritonitis requiring additional irrigation and washout. Performed a bedside US of the right thorax, which showed present pleural fluid however did not seem enough to drain safely at time of admission. CXR is not quite convincing for pneumonia, may be atelectasis in the setting of the surgery/peritonitis, however will order empiric antibiotics and await cultures. For pneumonia patient CURB-65 score would be 0. No signs indicative of a perforation. Abdominal exam is benign and patient is not exhibiting peritoneal signs, denying symptoms and having good bowel passage. -IV ceftriaxone 1 g qday -IV azithromycin 500 mg qday -US thoracentesis ordered -Pleural fluid studies: Amylase, glucose, LDH, cell count, protein -Serum LDH -Blood cultures pending -Sputum cultures -COVID, flu -MRSA screen -Cocci serology -Incentive spirometry #History of hyperlipidemia -Continue home ezetimibe 10 mg HS DVT prophylaxis: Lovenox 40 mg subQ GI prophylaxis: None Diet: Regular Silva: None Lines: Peripheral IV Antibiotics: ceftriaxone [05/06/2023- ], azithromycin [05/06/2023- ] CODE STATUS: FULL Reason for hospitalization: Right pleural effusion and pneumonia Patient plan of care was discussed with the attending physician, Dr. Barron. Montse Yun, PGY-2 Attending Provider Attestation/Addendum 63-year-old male patient with recent surgery for ruptured appendicitis, localized peritonitis. The patient was sent by PCP to the ER for evaluation He is complaining of mild fever, shortness of breath, inability to fully inspire without causing cough and discomfort in the right chest area. White count is 17,000. Chest x-ray showed right pneumonia with blunting of right costophrenic angle,, pleural effusion. The patient will be admitted for IV antibiotic treatment. Blood cultures were not obtained from the emergency room. Discussed with housestaff for admission for IV antibiotic treatment. Repeat chest x-ray. Further evaluation with CT chest recommended.
--- NOTE | 2024-05-07 02:15 | PC.NURSE ---
report called to Thu GUADALUPE.
[2024-05-07 05:18] LABS: Basophils % (Auto) 0 % (0-2.5); Eosinophils # (Auto) 0.2 Thou/mm3 (0.0-0.5); Eosinophils % (Auto) 2 % (0-10); Immature Granulocytes % (Auto) 4 % (0-0); Immature Granulocytes Auto 0.64 Thou/mm3 (0.00-0.00); Lymphocytes # (Auto) 1.6 Thou/mm3 (1.0-4.8); Lymphocytes % (Auto) 11 % (10-50); Mean Corpuscular HGB Conc 32.4 g/dl (31.0-37.0); Mean Corpuscular Hemoglobin 27.8 pg (25.0-35.0); Mean Corpuscular Volume 86 fL (80-100); Monocytes # (Auto) 1.1 Thou/mm3 (0.0-0.8); Monocytes % (Auto) 7 % (0-12); Neutrophils # (Auto) 11.5 Thou/mm3 (1.8-7.7); Neutrophils % (Auto) 76 % (37-80); Nucleated Red Blood Cell % 0 /100 WBC (0); Platelet Count 276 Thou/mm3 (140-440); RDW Standard Deviation 45.8 fL (35.1-43.9); Red Blood Count 4.32 Miln/mm3 (4.50-5.90); White Blood Count 15.1 Thou/mm3 (3.8-10.6)
--- NOTE | 2024-05-07 06:40 | PC.NURSE ---
influenza A/B sample sent to lab to be tested at 0630
--- NOTE | 2024-05-07 06:44 | PC.NURSE ---
bedside influenza A and B tests not available on the unit, dr bass stated she will change the order to swab.
--- NOTE | 2024-05-07 07:00 | XR_ITS ---
Examination: Ultrasound right hemithorax Ultrasound left hemithorax Exam date and time: April 2024 0858 hours INDICATIONS: Difficulty breathing this week, chest x-ray yesterday right pleural fluid Technique and findings: Grayscale sonographic images hemithoraces Mild right pleural effusion, no left pleural effusion IMPRESSION: Mild right pleural effusion
[2024-05-07 07:19] LABS: Anion Gap 6 (7-16); BUN/Creatinine Ratio 14 Ratio (12-20); Blood Urea Nitrogen 14 mg/dL (9-23); Calcium 8.6 mg/dL (8.3-10.6); Carbon Dioxide 26.1 mMol/L (20.0-31.0); Chloride 108 mMol/L (98-107); Estimated Creatinine Clearance 91.9 mL/min (>60); Glucose 115 mg/dL (74-106); Magnesium 2.1 mg/dL (1.6-2.6); Osmolality,Calculated 280 (275-295); Phosphorous 2.7 mg/dL (2.4-5.1); Potassium 4.8 mMol/L (3.4-5.1); Sodium 140 mMol/L (136-145); eGFR > 60 See Note
[2024-05-07 07:32] LABS: LDH (Lactate Dehydrogenase) 163 U/L (120-246)
[2024-05-07 08:06] LABS: Influenza A Ag Negative; Influenza B Ag Negative
[2024-05-07 09:14] LABS: INR 1.1 (0.9-1.3); Partial Thromboplastin Time 26.6 Seconds (22.0-36.0); Prothrombin Time 11.6 Seconds (9.0-12.2)
--- NOTE | 2024-05-07 09:44 | PC.SS ---
SS follow up note; H&H repeat test pending. Cultures and coxy pending.
[2024-05-07] MEDS: ENOXAPARIN SOD INJ 40 MG/0.4 ML SYRINGE SC (09:47)
--- NOTE | 2024-05-07 09:54 | PC.SS ---
Patient Mitchell Hui is a 63 yr old male admitted to hospitalist services for R Pleural Effusion. SS met with pt at bedside to complete initial assessment. Patient was able to confirm all demographic information. Patient lives with his Leanne Hui [phone]. He identifies his as surrogate Decision maker. Patient reports he is independent with ADL's. Patient does not utilize any source of DME. Patients PCP is Leanne Samaniego. Pt is followed by Dr. Elder for urology. At time of discharge patient will return home with his providing transport.Patient does not have Advance Directive and is not interested.
[2024-05-07 10:27] LABS: Hematocrit 38.9 % (41.0-53.0)
--- NOTE | 2024-05-07 10:43 | CHAP ---
Patient was visited by a Spiritual Care Volunteer on 05/07/2024 between 0900 and 1036 and received comfort, encouragement and/or prayer.
[2024-05-07] MEDS: ACETAMINOPHEN 325 MG TABLET 650 MG PO (11:12)
[2024-05-07] MEDS: SODIUM CHLORIDE RT 10% 15 ML NEBU 5 ML INH (11:17)
--- NOTE | 2024-05-07 12:58 | PC.NURSE ---
PATIENT HAS DISCHARGE ORDERS AND STATES HE WILL BE PICKED WHEN IS ABLE TO COME AT 1500
--- NOTE | 2024-05-07 13:42 | ESDS_ITS ---
<Statement entered by Shen Rosa MD - 05/07/24 14:19> I saw and examined the patient, and I agree with current management stated by Dr Torsten MD,PGY1. Plan of care was discussed with the attending physician and resident physician. Disclaimer: Despite multiple revisions, due to the dictation software being used, the document bellow may not be free of grammatical errors including phonetic/typographic errors. However, this does not deter from our commitment to providing health care in the patient's best interest in mind. Dr. Moe MD, PGY 2 Planned Discharge Date 05/07/24 DS: Providers Provider Date of admission: 05/07/24 00:32 Primary care physician: Leanne Samaniego NP Admitting Provider: Francisco Barron MD Attending Provider on Admission: Bridger Phillips DO Attending Provider on DC: Melinda Villareal MD Discharging Provider: Melinda Villareal MD DS: Diagnosis Problem List Completed Was Problem List Reviewed/Reconciled?: Yes Hospital Course Hospital Course Hospital course: Summary: 63-year-old male with past medical history of hyperlipidemia who presented to the ED on 05/06/2024 sent from PCP clinic due to elevated WBC on outpatient labs and CXR showing pneumonia. He had been hospitalized from 04/28-05/03 for ruptured appendix s/p appendectomy. Patient was admitted for further management of pneumonia and right-sided pleural effusion. ER Coures: -Initial vitals were BP 156/76, HR 89, RR 18, Temp 99.2, O2 98% on room air -Labs significant for WBC 17.1, lactic acid 2.2 -CXR is showing a right-sided pleural effusion -In the ED, patient was given 1 g IV ceftriaxone, 500 mg IV azithromycin, and 2.3L NS -Patient was admitted for further management of right pleural effusion Hospital Course: Hospital course, patient continued to be treated for pneumonia and started on she was continued on hospital floors. Patient's flu negative. Patient was given atelectasis noted on imaging. IR consulted for possible thoracentesis guided on US. Pleural effusion too small to drain. Please follow-up with outpatient clinic/primary care provider. Mild right pleural effusion noted by radiologist with no left pleural effusion. Pending blood cultures. Instructions: Take Levaquin 500 mg once dally for 6 more days to complete course Use incentive spirometer daily atleast 2-3 times a day Continue taking all home meds as prescribed F/u with PCP as outpatient within 2 weeks In case of emergency Call 911 or come back to the ED Disposition: Home #Right-sided pleural effusion #Right lung atelectesis #Community acquired pneumonia versus hospital acquired pneumonia #Leukocytosis #Recent ruptured appendicitis s/p appendectomy #History of hyperlipidemia Time Spent with Patient Time attestation: Total time spent providing and/or coordinating discharge services: greater than 35 minutes with care/coordination Exam Vital Signs Temp Pulse Resp BP Pulse Ox O2 Del Method 97.0 F 70 17 117/79 99 Room Air 05/07/24 11:54 05/07/24 11:54 05/07/24 11:54 05/07/24 11:54 05/07/24 11:54 05/07/24 11:54 Narrative Exam General Appearance: Alert & Oriented X3, well-nourished male who is lying in bed in no acute distress HEENT: Skull symmetrical and atraumatic. Conjunctivae pink and moist. Pupils equal, round, reactive to light and accommodation (PERRL). External ear without lesion or discharge. Straight, nares patient, mucosa pink, no discharge. No thyroid nodule appreciated. No cervical lymphadenopathy. Cardio: Normal Rate and Rhythm with S1 and S2 heart sounds. No murmurs or extra heart sounds auscultated. No bruits on carotid auscultation. No peripheral edema or cyanosis. Lungs: Symmetric with good expansion. Chest and back non-tender. Breath sounds vesicular but reduced on left side. Abdomen: Non-tender, Non-distended, Normal Reactive Bowel Sounds Neuro: Alert, cooperative, oriented to person, place, and time. Speech clear. CN grossly intact. Upper motor strength 5/5 and Lower motor strength 5/5. Sensation intact. Discharge Plan Plan Patient Disposition: HOME (Self Care) Disposition Comment: Stable Care Plan Goals: Take Levaquin 500 mg once dally for 6 more days to complete course Use incentive spirometer daily atleast 2-3 times a day Continue taking all home meds as prescribed F/u with PCP as outpatient within 2 weeks In case of emergency Call 911 or come back to the ED Prescriptions/Referrals Prescriptions/Med Rec: New levofloxacin 500 mg tablet 500 mg PO QDAY 6 Days Qty: 6 0RF Continued tadalafil [Cialis] 10 mg tablet 10 mg PO QDAY PRN (Reason: Sexual Activity) Rx Instructions: administer approximately 30min before sexual activity; do not use more than 1 dose per 24hrs ezetimibe 10 mg tablet 10 mg PO HS Discontinued ciprofloxacin HCl [Cipro] 500 mg tablet 500 mg PO BID Qty: 14 0RF Referrals: Leanne Samaniego, [employer] CONTROL OPERATOR [Primary Care Provider] - Patient/Caregiver Discharge Instructions Education Materials: Thoracentesis Dc Print Language: Burkinan Stand Alone Forms: Beatriz Award Info., Patient Portal Info Letter Discharge Order Discharge Orders: Discharge (Routine); Ordered 05/07/24 Ordered By: Shen Rosa Quality Discharge Quality Measures VTE prophylaxis Attestestation Attestation I attest that I was physically present for the evaluation, physical examination, lab and imaging review of the patient with the residents. I discussed the case with the residents and agree with the findings and plans of care as documented above. Patient was an overnight admission for acute hypoxic respiratory failure secondary to pneumonia/atelectasis who recently underwent appendectomy. Imaging also revealed moderate to large pleural effusion. But this morning at bedside patient appears comfortable, states his SOB has resolved, saturating well on room air. US thoracentesis was ordered but unable to perform due to minimal fluid level. Patient deemed stable for discharge on oral antibiotiocs. Encouraged to continue incentive spirometry. Melinda Villareal MD
[2024-05-07 14:31] LABS: Cocci Serology, IgM Negative (Negative)
[2024-05-08 14:51] LABS: Cocci Serology, IgG Negative (Negative)
== END 2024-05-07 15:00 | disposition home or self-care (01) | DRG 194 ==
LOC: SERX 05-07 00:30 → SERHOLD 05-07 00:48 → S3SX 05-07 02:46
PROVIDERS: Student in an Organized Health Care Education/Training Program; Admitting Provider Internal Medicine; Emergency Provider Emergency Medicine; PCP Nurse Practitioner Family; Visit Provider Student in an Organized Health Care Education/Training Program
DX: J18.9 Pneumonia, unspecified organism (principal); J91.8 Pleural effusion in other conditions classified elsewhere; E78.00 Pure hypercholesterolemia, unspecified; J98.11 Atelectasis; Z90.49 Acquired absence of other specified parts of digestive tract; Z79.899 Other long term (current) drug therapy
CPT/HCPCS: 36415; 36430; 76999; 80048; 81001; 82150; 82945; 83605; 83615; 83735; 84100; 84145; 84157; 85014; 85018; 85025; 85610; 85730; 86331; 86635; 87040; 87070; 87075; 87081; 87205; 87502; 89051; 89220; J0456; J0696; J1650; J7030; J7050; 94640; A9270

== ENCOUNTER → 2024-05-06 | Outpatient (CLI) | payer MEDICARE, SELFPAY ==
--- NOTE | 2024-05-06 | XR_ITS ---
Examination: PA lateral chest 2 views TECHNIQUE: Upright PA lateral chest 2 views Exam date and time: May 06, 2024 at 1248 hours Comparison April 27, 2024 INDICATIONS: Shortness of breath coughing this week, appendectomy April 28, 2024 FINDINGS: Interval moderate to large right pleural effusion Pneumonia at the right lung base Left lung clear Normal heart size IMPRESSION: Right base pneumonia Moderate to large right pleural effusion
[2024-05-06 13:49] LABS: Basophils # (Auto) 0.1 Thou/mm3 (0.0-0.2); Basophils % (Auto) 1 % (0-2.5); Eosinophils # (Auto) 0.3 Thou/mm3 (0.0-0.5); Eosinophils % (Auto) 2 % (0-10); Hematocrit 42.5 % (41.0-53.0); Immature Granulocytes % (Auto) 6 % (0-0); Immature Granulocytes Auto 1.07 Thou/mm3 (0.00-0.00); Lymphocytes # (Auto) 1.8 Thou/mm3 (1.0-4.8); Lymphocytes % (Auto) 10 % (10-50); Mean Corpuscular HGB Conc 32.9 g/dl (31.0-37.0); Mean Corpuscular Hemoglobin 28.3 pg (25.0-35.0); Mean Corpuscular Volume 86 fL (80-100); Monocytes # (Auto) 1.4 Thou/mm3 (0.0-0.8); Monocytes % (Auto) 8 % (0-12); Neutrophils # (Auto) 12.5 Thou/mm3 (1.8-7.7); Neutrophils % (Auto) 73 % (37-80); Nucleated Red Blood Cell % 0 /100 WBC (0); Platelet Count 339 Thou/mm3 (140-440); RDW Standard Deviation 46.3 fL (35.1-43.9); Red Blood Count 4.94 Miln/mm3 (4.50-5.90); White Blood Count 17.1 Thou/mm3 (3.8-10.6)
[2024-05-06 14:09] LABS: Alanine Aminotransferase 35 U/L (10-49); Albumin, Serum 4.4 gm/dL (3.4-4.8); Albumin/Globulin Ratio 1.4 (1.2-2.2); Alkaline Phosphatase 91 U/L (46-116); Anion Gap 9 (7-16); Aspartate Amino Transferase 23 U/L (0-34); BUN/Creatinine Ratio 16 Ratio (12-20); Bilirubin,Total 0.2 mg/dL (0.3-1.2); Blood Urea Nitrogen 18 mg/dL (9-23); Calcium 9.3 mg/dL (8.3-10.6); Calcium (Corrected) 9.3 mg/dL (8.5-10.1); Carbon Dioxide 25.3 mMol/L (20.0-31.0); Chloride 104 mMol/L (98-107); Creatinine (Component) 1.1 mg/dL (0.6-1.3); Globulin 3.2 gm/dL (2.3-3.5); Glucose 101 mg/dL (74-106); Osmolality,Calculated 277 (275-295); Potassium 4.7 mMol/L (3.4-5.1); Sodium 138 mMol/L (136-145); Total Protein 7.6 gm/dL (5.7-8.2); eGFR > 60 See Note
== END | disposition home or self-care (01) ==
LOC: COPL 11:30
PROVIDERS: PCP Family Medicine; Referring Provider Nurse Practitioner Family; Visit Provider Radiology Diagnostic Radiology
DX: J18.9 Pneumonia, unspecified organism (principal); J90 Pleural effusion, not elsewhere classified; K35.32 Acute appendicitis with perforation, localized peritonitis, and gangrene, without abscess
CPT/HCPCS: 36415; 71046; 80053; 85025

== ENCOUNTER → 2024-05-13 | Outpatient (CLI) | payer MEDICARE, SELFPAY ==
[2024-05-13 13:53] LABS: Collection Type, Urine Clean Catch
[2024-05-13 14:08] LABS: Lactate (Lactic Acid) 1.6 mMol/L (0.4-2.0)
[2024-05-13 14:09] LABS: Basophils % (Auto) 0 % (0-2.5); Eosinophils # (Auto) 0.2 Thou/mm3 (0.0-0.5); Eosinophils % (Auto) 2 % (0-10); Hematocrit 43.2 % (41.0-53.0); Immature Granulocytes % (Auto) 1 % (0-0); Immature Granulocytes Auto 0.08 Thou/mm3 (0.00-0.00); Lymphocytes # (Auto) 1.4 Thou/mm3 (1.0-4.8); Lymphocytes % (Auto) 14 % (10-50); Mean Corpuscular HGB Conc 32.4 g/dl (31.0-37.0); Mean Corpuscular Hemoglobin 27.7 pg (25.0-35.0); Mean Corpuscular Volume 85 fL (80-100); Monocytes # (Auto) 1.2 Thou/mm3 (0.0-0.8); Monocytes % (Auto) 12 % (0-12); Neutrophils # (Auto) 7.1 Thou/mm3 (1.8-7.7); Neutrophils % (Auto) 72 % (37-80); Nucleated Red Blood Cell % 0 /100 WBC (0); Platelet Count 438 Thou/mm3 (140-440); RDW Standard Deviation 43.8 fL (35.1-43.9); Red Blood Count 5.06 Miln/mm3 (4.50-5.90); White Blood Count 9.9 Thou/mm3 (3.8-10.6)
--- NOTE | 2024-05-13 14:09 | XR_ITS ---
Examination: CTA chest with intravenous contrast 2-D reconstructions 3-D reconstructions, vascular Date and time of exam: May 13, 2024 1536 hours INDICATIONS: Shortness of breath congestion chest pain today CTDI: vol (mGy) 16.4 DLP: (mGycm) 440 Technique: Multiple axial sections of the thorax have been obtained. 3 mm slice thickness, from below the hemidiaphragms to above the apices of the lungs. Mediastinal and lung density settings have been obtained. 2-D sagittal and coronal reconstructions. 3-D angiographic renderings, 3-D volume renderings, 3D post processing, vascular maximum intensity projections obtained. Contrast administered is 100 cc Isovue-370. Low dose protocols were performed. One or more of the following dose reduction techniques were used; automated exposure control, adjustment of the mA and/or KV according to patient size, use of iterative reconstruction technique. Findings: No thoracic aortic aneurysmal dilatation No pulmonary artery emboli noted Large right pleural effusion Atelectasis in the right lower lobe No pneumonia No visualized liver or splenic lesion No gallstones No pancreatic or adrenal mass The osseous structures are intact IMPRESSION: Negative for pulmonary artery emboli Large right pleural effusion, amenable to ultrasound-guided thoracentesis
[2024-05-13 14:22] LABS: Bilirubin,Urine Negative (Negative); Blood,Urine Negative (Negative); Clarity,Urine Turbid (Clear/Hazy); Color,Urine Yellow (Lt Yel-Yel); Culture Indicated,Urine Not Indicated; Glucose, Urine Negative (Negative); Ketones,Urine Negative (Negative); Leukocyte Esterase,Urine Negative (Negative); Nitrite,Urine Negative (Negative); PH,Urine 5.5 (5.0-7.0); Protein,Urine 1+ (Neg - Trace); RBC,Urine 2 /hpf (0-3); Specific Gravity,Urine 1.032 (1.001-1.035); Squamous Epithelial Cell,Urine < 1 /hpf (0-5); Urobilinogen,Urine Negative mg/dL (0.0-1.0); WBC,Urine 4 /hpf (0-5)
[2024-05-13 14:33] LABS: Alanine Aminotransferase 34 U/L (10-49); Albumin, Serum 4.7 gm/dL (3.4-4.8); Albumin/Globulin Ratio 1.3 (1.2-2.2); Alkaline Phosphatase 91 U/L (46-116); Anion Gap 8 (7-16); Aspartate Amino Transferase 14 U/L (0-34); BUN/Creatinine Ratio 14 Ratio (12-20); Bilirubin,Total 0.5 mg/dL (0.3-1.2); Blood Urea Nitrogen 15 mg/dL (9-23); Calcium 9.7 mg/dL (8.3-10.6); Calcium (Corrected) 9.7 mg/dL (8.5-10.1); Carbon Dioxide 28.6 mMol/L (20.0-31.0); Chloride 100 mMol/L (98-107); Creatinine (Component) 1.1 mg/dL (0.6-1.3); Globulin 3.7 gm/dL (2.3-3.5); Glucose 108 mg/dL (74-106); Osmolality,Calculated 275 (275-295); Potassium 3.9 mMol/L (3.4-5.1); Sodium 137 mMol/L (136-145); Total Protein 8.4 gm/dL (5.7-8.2); eGFR > 60 See Note
== END | disposition home or self-care (01) ==
LOC: COPL 09:35 → CCTX 13:27 → SCAT 13:42
PROVIDERS: PCP Family Medicine; Referring Provider Nurse Practitioner Family; Visit Provider Nurse Practitioner Family
DX: J90 Pleural effusion, not elsewhere classified (principal); K35.32 Acute appendicitis with perforation, localized peritonitis, and gangrene, without abscess
CPT/HCPCS: 36415; 71275; 80053; 81001; 83605; 85025; A4649; Q9967

== ENCOUNTER 2024-05-14 07:41 | Emergency (ER) | payer MEDICARE, SELFPAY ==
--- NOTE | 2024-05-14 | XR_ITS ---
Examination: PA chest single view TECHNIQUE: Upright PA chest single view Exam date and time: May 14, 2024 1207 hours INDICATIONS: Post right thoracentesis. FINDINGS: No pneumothorax post right thoracentesis Normal heart size IMPRESSION: No pneumothorax post right thoracentesis
--- NOTE | 2024-05-14 07:49 | XR_ITS ---
Examination: PA lateral chest 2 views TECHNIQUE: Upright PA lateral chest 2 views Exam date and time: May 14, 2024 0804 hours Comparison May 06, 2024 INDICATIONS: Shortness of breath beginning 2 weeks ago. FINDINGS: Pneumonia right base Large right pleural effusion Left lung clear Normal heart size IMPRESSION: Pneumonia right base Large right pleural effusion
--- NOTE | 2024-05-14 07:49 | XR_ITS ---
Examination: Ultrasound-guided right thoracentesis Ultrasound right hemithorax Ultrasound left hemithorax INDICATIONS: Difficulty breathing this week, pleural fluid on chest x-ray May 14, 2024 Exam date and time: May 14, 2024 1207 hours technique and findings: Sonographic images right and left hemithoraces Significant right mild left pleural fluid Informed consent provided. Timeout performed. Skin prepped over the right hemithorax and sterile drape applied, ultrasound sterile technique hand hygiene 1% lidocaine administered for local anesthesia Utilizing ultrasonographic guidance successful placement 5 Luxembourgish catheter in the right pleural space 1000 cc pleural fluid removed Estimated blood loss 0 cc IMPRESSION: Successful ultrasound-guided right thoracentesis, 1000 cc pleural fluid removed
[2024-05-14 07:50] VITALS: BP 135/80; PULSE 80; RESP 16; TEMP 36.6; O2SAT 98; BMI 27.0
[2024-05-14 09:07] VITALS: BP 127/67; PULSE 71; RESP 20; O2SAT 97
[2024-05-14 12:22] VITALS: BP 119/73; PULSE 76; RESP 18; TEMP 36.8; O2SAT 97
--- NOTE | 2024-05-14 12:56 | PD.EDSOB ---
ED SOB =RME/HPI General Chief Complaint: Shortness of Breath/Dyspnea Stated Complaint: CT LAST NIGHT SHOWS FLUID IN LUNGS; SOB Arrival date/time: 05/14/24 07:41 RME / HPI RME / HPI Narrative: 63 year old male presents to the ED sent by PCP for treatment of pleural effusion. Patient reports on 04/28/2024 was evaluated here for abdominal pain and had lap surgery for acute appendicitis with perforation and localized peritonitis. States he was discharged home 05/03/2024 and developed shortness of breath with occasional cough. Was admitted 05/06/2024 through 05/07/2024 for pneumonia and right pleural effusion. States the pleural effusion at that time was so mild no interventions performed. Discharged home and noticed shortness of breath worsening. Followed up with PCP who ordered an outpatient CT that was performed yesterday and showing a large pleural effusion. Denies fevers, chills, or other complaints. Related Data Home Medications ?Medication ?Instructions ?Recorded ?Confirmed tadalafil 10 mg tablet (Cialis) 10 mg PO QDAY PRN Sexual Activity 11/13/22 05/07/24 ezetimibe 10 mg tablet 10 mg PO HS 04/28/24 05/07/24 Allergies Allergy/AdvReac Type Severity Reaction Status Date / Time No Known Allergies Allergy Verified 05/14/24 07:42 Review of Systems Review of Systems Narrative Review of Systems: GEN: No fever, no chills, no weight loss EYES: No discharge, no visual changes, no pain HEENT: No ear pain, no congestion, no sore throat PULM: + shortness of breath, +cough CV: No chest pain, no palpitations GI: No nausea, no vomiting, no diarrhea, no pain, no constipation : No frequency, no urgency, no dysuria MUSC/SKEL: No joint pain, no back pain SKIN: No rash NEURO: No weakness, no headache Past Medical History Past Medical History CARDIAC: Positive Cardiac Disorders and Hypercholesterolemia GASTROINTESTINAL: Positive Gastrointestinal Disorders and Ulcer Family History FAMILY HISTORY: Positive Family Cardiac Disorders Surgical History SURGICAL: Positive Abdominal Surgery, Joint Replacement and Vasectomy Social History SMOKING STATUS: Never smoker SUBSTANCE USE: does not use ED Exam Narrative Physical exam: GENERAL APPEARANCE: alert and oriented x 4, well-developed, well-nourished, occasionally coughing during exam HEENT: Normocephalic, atraumatic; pupils equal, round, reactive to light; EOMI; mucous membranes pink, moist; oropharynx clear NECK: Supple LUNGS: Very mild rales on the right, good air movement throughout lung obrien; no wheezes, no rhonchi HEART: Regular rate, regular rhythm; normal S1, S2; no murmurs ABDOMEN: non distended; normal BS; soft, no tenderness, no guarding, no rebound; no masses, no organomegaly, no hernia BACK: no CVA tenderness EXTREMITIES: atraumatic; no edema NEUROLOGIC: awake; alert and oriented x4; cranial nerves II-XII grossly intact; no focal sensory or motor deficits PSYCHIATRIC: appropriate mood and affect SKIN: warm, dry, normal color; no rashes Course Course Course Narrative: chest xray ordered to help determine etiology of shortness of breath. Quality Measures none Orders Category Date Time Status US thoracentesis Stat Exams 05/14/24 07:49 Completed XR chest 1V post procedure Stat Exams 05/14/24 Completed XR chest 2V Stat Exams 05/14/24 07:49 Completed Amylase,Pleural Fluid Routine Lab 05/14/24 13:06 Completed Body Fld Cult w Yoon & Gram St Stat Lab 05/14/24 13:06 Received Glucose,Pleural Fluid Routine Lab 05/14/24 13:06 Completed LDH,Pleural Fluid Routine Lab 05/14/24 13:06 Completed Pleural Fld Cell Count Diff Routine Lab 05/14/24 13:06 Completed Protein Total,Pleural Fluid Routine Lab 05/14/24 13:06 Completed Lidocaine 1% Pf 30 ml [Xylocaine 1% Pf 30 ml] Med 05/14/24 09:31 Discontinued 30 ml .ROUTE .STK-MED ONE Vital Signs Vital signs: Vital Signs Temperature 97.8 F 05/14/24 07:50 Pulse Rate 80 05/14/24 07:50 Respiratory Rate 16 05/14/24 07:50 Blood Pressure 135/80 H 05/14/24 07:50 Pulse Oximetry (%) 98 05/14/24 07:50 Oxygen Delivery Method Room Air 05/14/24 07:50 Pulse ox is 98% on room air which is adequate. Shortness of Breath / Dyspnea MDM Narrative MDM Narrative:: Roxanne Steel, nelson scribing for and in the presence of Dr. Blount. Patient data External records reviewed:: [facility] previous records (I reviewed admission 05/06-05/07/2024) Clinical information provided by:: patient Social determinants that could affect healthcare access:: none Patient has the following chronic illnesses:: Hyperlipidemia, s/p lap appendectomy 04/28/2024 How is presenting disease/condition affected by chronic disease/condition?: exacerbated by Evaluation data The following diagnostics were reviewed and interpreted by me:: lab results and radiology exam(s) Lab and/or radiology exams considered but not ordered:: None Interpretation Summary: Ordering Physician: Shalom CAZARES)Steffen NP Date of Service: 05/14/24 Procedure(s): XR chest 2V Accession Number(s): [id number] cc: Leanne Samaniego NP; Shalom CAZARES)Steffen NP; Demetrius Dalton MD~ Examination: PA lateral chest 2 views TECHNIQUE: Upright PA lateral chest 2 views Exam date and time: May 14, 2024 0804 hours Comparison May 06, 2024 INDICATIONS: Shortness of breath beginning 2 weeks ago. FINDINGS: Pneumonia right base Large right pleural effusion Left lung clear Normal heart size IMPRESSION: Pneumonia right base Large right pleural effusion Dictated By: Demetrius Dalton MD Signed By: <Electronically signed by Demetrius Dalton MD in OV> 05/14/24 0857 Ordering Physician: Demetrius Dalton MD Date of Service: 05/14/24 Procedure(s): XR chest 1V post procedure Accession Number(s): [id number] cc: Leanne Samaniego NP; Demetrisu Dalton MD~ Examination: PA chest single view TECHNIQUE: Upright PA chest single view Exam date and time: May 14, 2024 1207 hours INDICATIONS: Post right thoracentesis. FINDINGS: No pneumothorax post right thoracentesis Normal heart size IMPRESSION: No pneumothorax post right thoracentesis Dictated By: Demetrius Dalton MD Signed By: <Electronically signed by Demetrius Dalton MD in OV> 05/14/24 1400 Ordering Physician: Shalom CAZARES),Steffen JI Date of Service: 05/14/24 Procedure(s): US thoracentesis Accession Number(s): [id number] cc: Leanne Samaniego ADVERTISING DESIGNER; Shalom (MARGY),Steffen JI; Demetrius Dalton MD~ Examination: Ultrasound-guided right thoracentesis Ultrasound right hemithorax Ultrasound left hemithorax INDICATIONS: Difficulty breathing this week, pleural fluid on chest x-ray May 14, 2024 Exam date and time: May 14, 2024 1207 hours technique and findings: Sonographic images right and left hemithoraces Significant right mild left pleural fluid Informed consent provided. Timeout performed. Skin prepped over the right hemithorax and sterile drape applied, ultrasound sterile technique hand hygiene 1% lidocaine administered for local anesthesia Utilizing ultrasonographic guidance successful placement 5 Korean catheter in the right pleural space 1000 cc pleural fluid removed Estimated blood loss 0 cc IMPRESSION: Successful ultrasound-guided right thoracentesis, 1000 cc pleural fluid removed Dictated By: Demetrius Dalton MD Signed By: <Electronically signed by Demetrius Dalton MD in OV> 05/14/24 1359 Medications / Prescriptions Medications or Prescriptions considered but not ordered:: None Medication administrations:: Medication Administration History Discontinued Medications Lidocaine HCl (Lidocaine Inj Pf 1% 30 Ml Vial) Confirm Administered Dose 30 ml .ROUTE .[employer] ONE Stop: 05/14/24 09:32 See above Consultations Consultation(s) initiated? (list below): No Diagnosis Shortness of Breath Differential Diagnosis: acute exacerbation of chronic obstructive airways disease, congestive heart failure, community acquired pneumonia and other (Pleural effusion) Most likely diagnosis given after review of the tests above:: Pleural effusion Admission Indicated Admission indicated?: not indicated Admission Request Was there a request for admission?: No Disposition Plan Disposition Plan: Discharge Discharge Attestation Discharge Attestation: The patient and all family members were given an opportunity to ask questions and understood the discharge instructions. Discharge instructions specifically effects, indications for sooner follow up or return to the emergency department, and the expected course of current diagnosis. Patient condition: Stable Discharge Plan Plan Patient Disposition: HOME (Self Care) Prescriptions/Referrals Prescriptions/Med Rec: No Action tadalafil [Cialis] 10 mg tablet 10 mg PO QDAY PRN (Reason: Sexual Activity) Rx Instructions: administer approximately 30min before sexual activity; do not use more than 1 dose per 24hrs ezetimibe 10 mg tablet 10 mg PO HS Problem List Clinical Impression: Pleural effusion Patient/Caregiver Discharge Instructions Education Materials: Thoracentesis Dc, ED Pleural Effusion Print Language: Pashto Stand Alone Forms: Beatriz Award Info., Patient Portal Info Letter
[2024-05-14 13:32] LABS: Pleural Fluid WBC 5647 /cmm
[2024-05-14 13:34] LABS: Pleural Fluid Color Yellow
[2024-05-14 13:35] LABS: Pleural Fluid Appearance Hazy; Pleural Fluid Mononuclear 48 %; Pleural Fluid Polynuclear 52 %; Pleural Fluid RBC 7000 /cmm
[2024-05-14 13:52] VITALS: BP 144/76; PULSE 82; RESP 16; O2SAT 97
[2024-05-14 13:55] LABS: Amylase,Pleural Fluid 60 IU/L; Glucose,Pleural Fluid 97 mg/dL; LDH,Pleural Fluid 262 IU/L; Protein Total,Pleural Fluid 5.6 g/dL
== END 2024-05-14 13:53 | disposition home or self-care (01) ==
PROVIDERS: Emergency Provider Emergency Medicine; PCP Nurse Practitioner Family
DX: J90 Pleural effusion, not elsewhere classified (principal); J18.9 Pneumonia, unspecified organism
CPT/HCPCS: 32555; 71046; 82150; 82945; 83615; 84157; 87070; 87075; 87205; 89051; 99284; C1729

== ENCOUNTER → 2024-08-18 | Outpatient (CLI) | payer MEDICARE, SELFPAY ==
[2024-08-18 10:36] LABS: Cardiac Risk Estimate 4.2 RATIO (4.0-6.7); Cholesterol 192 mg/dL (132-200); HDL Cholesterol 46 mg/dL (40-60); LDL Cholesterol,Calculated 128 mg/dL (0-130); Triglycerides 92 mg/dL (30-150)
== END | disposition home or self-care (01) ==
LOC: COPL 09:09
PROVIDERS: PCP Nurse Practitioner Family; Referring Provider Nurse Practitioner Family; Visit Provider Nurse Practitioner Family
DX: E78.2 Mixed hyperlipidemia (principal)
CPT/HCPCS: 36415; 80061

== ENCOUNTER → 2024-09-17 | Outpatient (CLI) | payer MEDICARE, SELFPAY ==
--- NOTE | 2024-09-17 10:06 | XR_ITS ---
Examination: PA lateral chest 2 views TECHNIQUE: Upright PA lateral chest 2 views Date and time: September 17, 2024 1011 hours Comparison May 14, 2024 INDICATIONS: History right pleural effusion on chest film May 14, 2024. FINDINGS: Normal heart size Lungs are clear No current pleural effusions IMPRESSION: No current pleural effusions
== END | disposition home or self-care (01) ==
PROVIDERS: PCP Nurse Practitioner Family; Referring Provider Family Medicine; Visit Provider Family Medicine
DX: R91.8 Other nonspecific abnormal finding of lung field (principal)
CPT/HCPCS: 71046

== ENCOUNTER → 2025-01-14 | Outpatient (CLI) | payer MEDICARE, SELFPAY ==
[2025-01-14 12:25] LABS: Prostate Specific Antigen 1.83 ng/mL (0-4.00)
== END | disposition home or self-care (01) ==
PROVIDERS: PCP Family Medicine; Referring Provider Urology; Visit Provider Urology
DX: N40.1 Benign prostatic hyperplasia with lower urinary tract symptoms (principal)
CPT/HCPCS: 36415; 84153

== ENCOUNTER → 2025-01-20 | Outpatient (BNVA) | payer BC, SELFPAY | END | disposition home or self-care (01) | PROVIDERS: PCP Family Medicine; Referring Provider Family Medicine; Visit Provider Urology | DX: N52.9 Male erectile dysfunction, unspecified (principal); N40.0 Benign prostatic hyperplasia without lower urinary tract symptoms; E78.00 Pure hypercholesterolemia, unspecified | CPT/HCPCS: 81003; 99212; G0463 ==

== ENCOUNTER 2025-03-17 06:15 | Day surgery (SDC) | payer BC, SELFPAY ==
--- NOTE | 2025-03-11 08:46 | EKG_ITS ---
[facility] Test Date: 2025-03-11 Pat Name: LANEY LEON Department: Room: - Gender: Male Nut Threader: ESTRADA : 1960 Requested By: Leslye Pastor Order Number: [id number] Reading MD: Leslye Pastor Measurements Intervals [place] Rate: 58 P: 66 MD: 176 QRS: 72 QRSD: 94 T: 60 QT: 399 QTc: 393 Interpretive Statements SINUS BRADYCARDIA Compared to ECG 05/06/2024 20:07:37 Sinus rhythm no longer present /store/S0/[id number]/ecg/[id number].pdf
[2025-03-11 10:58] VITALS: BMI 27.0
[2025-03-11 12:25] LABS: Basophils # (Auto) 0.0 Thou/mm3 (0.0-0.2); Basophils % (Auto) 0 % (0-2.5); Eosinophils # (Auto) 0.1 Thou/mm3 (0.0-0.5); Eosinophils % (Auto) 1 % (0-10); Hematocrit 49.6 % (41.0-53.0); Hemoglobin 16.1 g/dL (13.5-16.0); Immature Granulocytes Auto 0.02 Thou/mm3 (0.00-0.00); Lymphocytes # (Auto) 1.1 Thou/mm3 (1.0-4.8); Lymphocytes % (Auto) 15 % (10-50); Mean Corpuscular HGB Conc 32.5 g/dl (31.0-37.0); Mean Corpuscular Hemoglobin 28.3 pg (25.0-35.0); Mean Corpuscular Volume 87 fL (80-100); Monocytes # (Auto) 0.7 Thou/mm3 (0.0-0.8); Monocytes % (Auto) 9 % (0-12); Neutrophils # (Auto) 5.6 Thou/mm3 (1.8-7.7); Neutrophils % (Auto) 75 % (37-80); Nucleated Red Blood Cell # 0.00 Thou/mm3 (0.00-0.00); Nucleated Red Blood Cell % 0 /100 WBC (0); Platelet Count 204 Thou/mm3 (140-440); RDW Standard Deviation 45.5 fL (35.1-43.9); Red Blood Count 5.68 Miln/mm3 (4.50-5.90); White Blood Count 7.5 Thou/mm3 (3.8-10.6)
[2025-03-11 12:46] LABS: Alanine Aminotransferase 23 U/L (10-49); Albumin, Serum 4.9 gm/dL (3.4-4.8); Albumin/Globulin Ratio 1.9 (1.2-2.2); Alkaline Phosphatase 89 U/L (46-116); Anion Gap 10 (7-16); Aspartate Amino Transferase 22 U/L (0-34); BUN/Creatinine Ratio 8 Ratio (12-20); Bilirubin,Total 0.5 mg/dL (0.3-1.2); Blood Urea Nitrogen 9 mg/dL (9-23); Calcium 10.3 mg/dL (8.3-10.6); Calcium (Corrected) 10.3 mg/dL (8.5-10.1); Carbon Dioxide 25.9 mMol/L (20.0-31.0); Chloride 103 mMol/L (98-107); Creatinine (Component) 1.1 mg/dL (0.6-1.3); Estimated Creatinine Clearance 75.7 mL/min (>60); Globulin 2.6 gm/dL (2.3-3.5); Glucose 92 mg/dL (74-106); Osmolality,Calculated 276 (275-295); Potassium 4.5 mMol/L (3.4-5.1); Sodium 139 mMol/L (136-145); Total Protein 7.5 gm/dL (5.7-8.2); eGFR > 60 See Note
[2025-03-17] VITALS (8 sets, daily range): BP systolic 121–140; BP diastolic 67–82; PULSE 61–87; RESP 13–18; TEMP 36.1–36.8; O2SAT 96–99; BMI 26.6
--- NOTE | 2025-03-17 07:30 | CHAP ---
Visited with patient and gave encouragement and prayer before procedure.
--- NOTE | 2025-03-17 09:17 | ESOP_ITS ---
Date of Procedure 03/17/25 Pre Op Diagnosis Left inguinal hernia Post Op Diagnosis Direct left inguinal hernia Procedure Left inguinal hernia repair with mesh Findings Large direct left inguinal hernia Procedure Description Patient brought into the operating room in supine position. After administration of general endotracheal anesthesia, patient's left groin was shaved, prepped and draped in standard surgical manner. The left inguinal crease was anesthetized with half percent Marcaine. An approximately 6 cm incision was made and dissection was carried to subcutaneous tissue. The Logan's fascia was divided and the external oblique aponeurosis was opened towards the external ring. The hernia sac and the spermatic cord structures were from the posterior aspect of the external oblique aponeurosis at the level of pubic tubercle. The hernia sac was then meticulously dissected off the spermatic cord structures at the level of internal ring. Patient was noted to have direct left inguinal hernia defect. The defect was primarily closed with interrupted [id number] sutures using 0 Vicryl. The floor of inguinal c anal was then reconstructed with ultra Pro proceed mesh. The mesh was secured with running 2-0 Prolene suture. The mesh secured medially to the pubic tubercle, superiorly into the conjoin tendon, inferiorly and to the shelving edge of inguinal ligament, the mesh was placed around the cord structures and tacked under the external oblique aponeurosis laterally. The area was copiously and thoroughly washed and irrigated, all the fluids were suctioned and the suction fluid returned clear. Hemostasis was adequate and satisfactory. External oblique aponeurosis was closed with running 2-0 Vicryl suture, and Logan's fascia was closed with interrupted suture using 3-0 Vicryl. The incision was closed with 4-0 Monocryl in subcutaneous fashion. Instruments, needles and sponge counts were reported to be correct ?2. Patient tolerated the procedure well. He was extubated, breathing spontaneously and without difficulty and was transferred to postanesthesia care in stable condition. Anesthesia GETA and local Pathology / specimen None Estimated Blood Loss 10 Condition Stable Disposition PACU Surgeon Leslye Pastor MD Surgical Staff Operation Date: 03/17/25 08:30 Case Staff Anesthesiologist: Cooper Marinelli RNjob spotter: Leanne Fink
--- NOTE | 2025-03-17 09:30 | SUR.PHASEI ---
pt received from OR in recovery bay 1. pt obtunded, breathing unlabored on oxymask 10l, oral airway in place. v/s stable. pt dressing to lower abd cdi. report received from Marycarmen HOANG and Miri GUADALUPE.
--- NOTE | 2025-03-17 09:56 | SUR.PHASEI ---
pt able to tolerate oral fluids without difficulty swallowing or nausea/vomiting.
--- NOTE | 2025-03-17 10:55 | SUR.PHASEII ---
pt awake and alert, breathing unlabored on room air. v/s stable. pt dressing to lower abd cdi, abd binder in place. pt able to ambulate to wheelchair with steady gait. d/c instructions given with daughter Martha in room all questions answered. pt d/c via wheelchair with all belongings.
--- NOTE | 2025-03-22 08:57 | PD.ANESPROG ---
Documentation for date of: 03/22/25 POST ANESTHESIA NOTE: Patient had GETA for L inguinal hernia repair on 03/17/25. I just called and spoke with him on the phone and he denied any problems from anesthesia stating No , I did not. It was fine. Cooper Marinelli MD Anesthesia Progress Note Progress Note Most recent Vital Signs: Last Vital Signs Temp 98.1 F 03/17/25 10:30 Pulse 68 03/17/25 10:30 Resp 18 03/17/25 10:30 BP 121/75 03/17/25 10:30 Pulse Ox 97 03/17/25 10:30 O2 Flow Rate 6 03/17/25 09:40
== END 2025-03-17 10:55 | disposition home or self-care (01) ==
PROVIDERS: Anesthesiology; PCP Nurse Practitioner Family; Referring Provider Surgery; Visit Provider Surgery
PROC: (CPT 49505; principal; 2025-03-17 08:30)
DX: K40.90 Unilateral inguinal hernia, without obstruction or gangrene, not specified as recurrent (principal); Z01.810 Encounter for preprocedural cardiovascular examination; E78.00 Pure hypercholesterolemia, unspecified; Z79.899 Other long term (current) drug therapy
CPT/HCPCS: 49505; 36415; 80053; 85025; 93005; A4217; A4649; C1781; J0131; J0690; J1100; J2371; J2405; J2704; J2765; J3010; J3490; A9270